=== PATIENT | male | born 1945 | race Caucasian/White ===

== ENCOUNTER 2019-05-13 15:58 | Inpatient (IN) | payer MEDICARE, BC ==
[2019-05-13] MEDS ORDERED: RINGERS SOLUTION,LACTATED 1,000 ML IV ONE ×2 (15:59→16:36)
[2019-05-13] MEDS ORDERED: NORMAL SALINE 1000 ML 1,000 ML IV ONE (15:59)
[2019-05-13] MEDS ORDERED: ACETAMINOPHEN 650 MG SUPP.RECT PR ONE (16:00)
--- NOTE | 2019-05-13 16:04 | ER Document Report ---
ED General - General Stated Complaint: UNRESPONSIVE Time Seen by Provider: 05/13/19 15:59 Notes: Patient is a 73-year-old male that presents to the emergency department for chief complaint of unresponsive. History obtained by EMS as the patient is currently intubated, and unresponsive, apparently the patient was laying on the pavement, for unknown amount of time this morning was, apparently a vessel slag worker showed up and at that time he told him to call 911 and then became unresponsive, when EMS arrived the patient was on the ground, he was covered and fire ants at that time, was noted to be hypoxic, and was minimally responsive, he did have palpable pulses, and did not apparently have an arrest, they did intubate him in the field, with a 7.0 ET tube, and bolused him with IV fluids, he was hypotensive, he got 1 L of fluids, for his intubation he got ketamine, fentanyl, and because his blood pressure dropped after RSI meds, he was given a low dose of epinephrine. He was noted to be febrile with a temperature of 106 F by EMS. No other history is obtainable at this time from EMS. Daughter states that if the patient falls, he has a hard time getting up, and he is supposed to be using a walker, he does have a degree of dementia and has short-term memory, usually has his hearing aids connected to his cell phone, but he did not have his phone on him today. Past Medical History: COPD, dementia, TIAs, hypertension, peripheral vascular disease Past Surgical History: CEA, thyroidectomy Social History: Admits to smoking cigarettes per family, and drinks 6-12 beers in the evening daily, primary care is Dr. Juan Family History: Reviewed and noncontributory for presenting illness Allergies: Reviewed, see documented allergy list. REVIEW OF SYSTEMS: Complete review of systems is not obtainable at this time secondary to the patient being intubated and altered PHYSICAL EXAMINATION: Vital signs reviewed, nursing noted reviewed. GENERAL: Patient appears ill, intubated, unresponsive at this time, agonal breathing in between assisted breaths HEAD: Atraumatic, normocephalic. EYES: Eyes appear normal, extraocular movements intact, sclera anicteric ENT: nares patent, ET tube in place dry mucous membranes NECK: C-collar in place LUNGS: Lung sounds coarse to auscultation bilaterally, equal chest rise with assisted breaths HEART: Heart rate tachycardic, regular rhythm, no audible murmur ABDOMEN: Soft, not apparently tender, normoactive bowel sounds. No rebound, guarding, or rigidity. No masses appreciated. EXTREMITIES: Trace bilateral lower extremity edema, distal pulses are intact and palpable. There are several large bullae noted on the patient's lower extremities bilaterally NEUROLOGICAL: GCS: 3T, patient intubated, not making any purposeful movements at this time. PSYCH: Intubated and sedated SKIN: Cool, mottled, normal turgor, multiple abrasions noted to the lower extremities, superficial in nature, and there is a skin abrasion noted to the patient's chest wall midline Past Medical History - Social History Smoking Status: Current Every Day Smoker Family History: Reviewed & Not Pertinent Physical Exam - Vital signs Vitals: Resp Pulse Ox 17 100 05/13/19 15:59 05/13/19 15:59 Course - Re-evaluation Re-evalutation: Patient seen and examined vital signs reviewed. Laboratory data and imaging were ordered as appropriate for the patient's presenting symptoms and complaint, with consideration of any critical or life threatening conditions that may be associated with their obtained history and exam as noted above. Patient was treated with IV fluid resuscitation, with 3 L of IV fluids, which did improve his blood pressure, and did bring down his heart rate as well, he was given fentanyl for sedation on the ventilator. Results were reviewed when available and demonstrated hyperkalemia, with mild acute kidney injury, patient was given sodium bicarbonate, IV insulin, and glucose, as well as calcium gluconate, in addition to large volume IV fluid resuscitation. The patient was re-evaluated and was improved from a hemodynamic standpoint, not requiring pressors, he was given low-dose propofol for sedation, after his blood pressure had improved. His chest x-ray was negative, urine was negative for signs of urinary tract infection, his symptoms seem most consistent with heat injury, and heatstroke, as he was encephalopathic, CT imaging of the head and c ervical spine were obtained and were negative for acute intracranial injury or acute cervical spine injury, the patient's cervical collar was removed at this point. Evaluation was most consistent with heatstroke, hypertension, hyperkalemia, acute on chronic respiratory failure requiring invasive positive pressure ventilation Results were discussed with the patient daughter at this point after careful consideration I feel that that patient should be admitted to the hospital. This was discussed with the patient daughter that it is in the best interest for their care to be admitted for further evaluation and management. Patient daughter agreed with this plan of care. A call was placed to the admitting provider, Neal Boswell CNP who graciously accepted the patient onto their service. *Note is created using voice recognition software and may contain spelling, syntax or grammatical errors. Laboratory 05/13/19 05/13/19 05/13/19 16:02 16:02 16:02 WBC 7.0 RBC 2.68 L Hgb 9.1 L Hct 26.0 L MCV 97 MCH 33.9 H MCHC 35.0 RDW 12.7 Plt Count 202 Seg Neutrophils % 38.1 L Lymphocytes % 56.7 H Monocytes % 4.0 Eosinophils % 0.5 Basophils % 0.7 Absolute Neutrophils 2.7 Absolute Lymphocytes 4.0 Absolute Monocytes 0.3 Absolute Eosinophils 0.0 Absolute Basophils 0.0 PT 14.5 INR 1.13 APTT 28.8 Carbonic Acid HCO3/H2CO3 Ratio ABG pH ABG pCO2 ABG pO2 ABG HCO3 ABG Total CO2 ABG O2 Saturation ABG Base Excess FiO2 Sodium 122.1 L Potassium 6.9 H* Chloride 93 L Carbon Dioxide 21 L Anion Gap 8 BUN 20 Creatinine 1.31 H Est GFR ( Amer) > 60 Est GFR (Non-Af Amer) 53 L Glucose 108 Lactic Acid Calcium 8.3 L Total Bilirubin 0.4 Direct Bilirubin 0.3 Neonat Total Bilirubin Not Reportable Neonat Direct Bilirubin Not Reportable Neonat Indirect Bili Not Reportable AST 34 ALT 23 Alkaline Phosphatase 72 Creatine Kinase Troponin I Total Protein 5.4 L Albumin 3.1 L Urine Color Urine Appearance Urine pH Ur Specific Scott Urine Protein Urine Glucose (UA) Urine Ketones Urine Blood Urine Nitrite Urine Bilirubin Urine Urobilinogen Ur Leukocyte Esterase Urine WBC (Auto) Urine RBC (Auto) Urine Mucus (Auto) Urine Ascorbic Acid Salicylates Acetaminophen Serum Alcohol 05/13/19 05/13/19 05/13/19 16:02 16:02 16:02 WBC RBC Hgb Hct MCV MCH MCHC RDW Plt Count Seg Neutrophils % Lymphocytes % Monocytes % Eosinophils % Basophils % Absolute Neutrophils Absolute Lymphocytes Absolute Monocytes Absolute Eosinophils Absolute Basophils PT INR APTT Carbonic Acid HCO3/H2CO3 Ratio ABG pH ABG pCO2 ABG pO2 ABG HCO3 ABG Total CO2 ABG O2 Saturation ABG Base Excess FiO2 Sodium Potassium Chloride Carbon Dioxide Anion Gap BUN Creatinine Est GFR ( Amer) Est GFR (Non-Af Amer) Glucose Lactic Acid 2.0 Calcium Total Bilirubin Direct Bilirubin Neonat Total Bilirubin Neonat Direct Bilirubin Neonat Indirect Bili AST ALT Alkaline Phosphatase Creatine Kinase Troponin I 0.050 Total Protein Albumin Urine Color YELLOW Urine Appearance SLIGHTLY-CLOUDY Urine pH 7.0 Ur Specific Scott 1.008 Urine Protein NEGATIVE Urine Glucose (UA) NEGATIVE Urine Ketones NEGATIVE Urine Blood NEGATIVE Urine Nitrite NEGATIVE Urine Bilirubin NEGATIVE Urine Urobilinogen NEGATIVE Ur Leukocyte Esterase NEGATIVE Urine WBC (Auto) 1 Urine RBC (Auto) 1 Urine Mucus (Auto) RARE Urine Ascorbic Acid NEGATIVE Salicylates Acetaminophen Serum Alcohol 05/13/19 05/13/19 05/13/19 16:02 16:02 16:02 WBC RBC Hgb Hct MCV MCH MCHC RDW Plt Count Seg Neutrophils % Lymphocytes % Monocytes % Eosinophils % Basophils % Absolute Neutrophils Absolute Lymphocytes Absolute Monocytes Absolute Eosinophils Absolute Basophils PT INR APTT Carbonic Acid 1.19 HCO3/H2CO3 Ratio 17:1 ABG pH 7.35 ABG pCO2 39.6 ABG pO2 306.5 H ABG HCO3 21.3 ABG Total CO2 22.5 L ABG O2 Saturation 99.7 H ABG Base Excess -4.0 FiO2 100% Sodium Potassium Chloride Carbon Dioxide Anion Gap BUN Creatinine Est GFR ( Amer) Est GFR (Non-Af Amer) Glucose Lactic Acid Calcium Total Bilirubin Direct Bilirubin Neonat Total Bilirubin Neonat Direct Bilirubin Neonat Indirect Bili AST ALT Alkaline Phosphatase Creatine Kinase 268 H Troponin I Total Protein Albumin Urine Color Urine Appearance Urine pH Ur Specific Scott Urine Protein Urine Glucose (UA) Urine Ketones Urine Blood Urine Nitrite Urine Bilirubin Urine Urobilinogen Ur Leukocyte Esterase Urine WBC (Auto) Urine RBC (Auto) Urine Mucus (Auto) Urine Ascorbic Acid Salicylates < 1.0 L Acetaminophen < 10 L Serum Alcohol < 10 05/13/19 17:51 WBC RBC Hgb Hct MCV MCH MCHC RDW Plt Count Seg Neutrophils % Lymphocytes % Monocytes % Eosinophils % Basophils % Absolute Neutrophils Absolute Lymphocytes Absolute Monocytes Absolute Eosinophils Absolute Basophils PT INR APTT Carbonic Acid 1.20 HCO3/H2CO3 Ratio 17:1 ABG pH 7.33 L ABG pCO2 39.8 ABG pO2 226.5 H ABG HCO3 20.6 ABG Total CO2 21.8 L ABG O2 Saturation 99.4 H ABG Base Excess -5.0 FiO2 100% Sodium Potassium Chloride Carbon Dioxide Anion Gap BUN Creatinine Est GFR ( Amer) Est GFR (Non-Af Amer) Glucose Lactic Acid Calcium Total Bilirubin Direct Bilirubin Neonat Total Bilirubin Neonat Direct Bilirubin Neonat Indirect Bili AST ALT Alkaline Phosphatase Creatine Kinase Troponin I Total Protein Albumin Urine Color Urine Appearance Urine pH Ur Specific Scott Urine Protein Urine Glucose (UA) Urine Ketones Urine Blood Urine Nitrite Urine Bilirubin Urine Urobilinogen Ur Leukocyte Esterase Urine WBC (Auto) Urine RBC (Auto) Urine Mucus (Auto) Urine Ascorbic Acid Salicylates Acetaminophen Serum Alcohol Chest X-Ray 05/13/19 16:00 IMPRESSION: NO ACUTE RADIOGRAPHIC FINDING IN THE CHEST. SUPPORT DEVICE(S) IN EXPECTED LOCATIONS. Cervical Spine CT 05/13/19 16:02 IMPRESSION: CHRONIC DEGENERATIVE CHANGES. NO ACUTE FINDINGS. Head CT 05/13/19 16:02 IMPRESSION: CHRONIC CHANGES OF ATROPHY AND MICROVASCULAR ISCHEMIA. NO ACUTE PROCESS. EVIDENCE OF ACUTE STROKE: NO. - Vital Signs Vital signs: Temp Pulse Resp BP Pulse Ox 17 95/46 L 100 05/13/19 20:35 05/13/19 20:35 05/13/19 20:35 - Laboratory Result Diagrams: 05/13/19 16:02 05/13/19 16:02 Laboratory results interpreted by me: 05/13/19 05/13/19 05/13/19 16:02 16:02 16:02 RBC 2.68 L Hgb 9.1 L Hct 26.0 L MCH 33.9 H Seg Neutrophils % 38.1 L Lymphocytes % 56.7 H ABG pH ABG pO2 306.5 H ABG Total CO2 22.5 L ABG O2 Saturation 99.7 H Sodium 122.1 L Potassium 6.9 H* Chloride 93 L Carbon Dioxide 21 L Creatinine 1.31 H Est GFR (Non-Af Amer) 53 L Calcium 8.3 L Creatine Kinase Total Protein 5.4 L Albumin 3.1 L Salicylates Acetaminophen 05/13/19 05/13/19 05/13/19 16:02 16:02 17:51 RBC Hgb Hct MCH Seg Neutrophils % Lymphocytes % ABG pH 7.33 L ABG pO2 226.5 H ABG Total CO2 21.8 L ABG O2 Saturation 99.4 H Sodium Potassium Chloride Carbon Dioxide Creatinine Est GFR (Non-Af Amer) Calcium Creatine Kinase 268 H Total Protein Albumin Salicylates < 1.0 L Acetaminophen < 10 L - EKG Interpretation by Me Additional EKG results interpreted by me: EKG demonstrates sinus tachycardia with a ventricular rate of 137 bpm, left axis deviation, QTC 435 ms, there are ST depressions noted in the leads I, V3 through V6, no prior for comparison at this time. Critical Care Note - Critical Care Note Total time excluding time spent on procedures (mins): 50 Comments: Critical care time 50 minutes exclusive from separate billable procedures for a patient requiring complex medical decision making, and high potential for c linical deterioration. In a patient with acute on chronic respiratory failure on the ventilator, requiring fluid resuscitation, frequent re-evaluations and discussion with family members. Time spent obtaining history from patient or surrogate, discussions with consultants, development of treatment plan with patient or surrogate, evaluation of patient's response to treatment, examination of patient, ordering and performing treatments and interventions, ordering and review of laboratory studies, re-evaluation of patient's condition, ordering and review of radiographic studies and review of old charts Discharge - Discharge Clinical Impression: Hyperkalemia, Hyponatremia Heat stroke Qualifiers: Encounter type: initial encounter Qualified Code(s): T67.0XXA - Heatstroke and sunstroke, initial encounter Acute and chronic respiratory failure Qualifiers: Respiratory failure complication: hypoxia Qualified Code(s): J96.21 - Acute and chronic respiratory failure with hypoxia Hypotension Qualifiers: Hypotension type: unspecified hypotension type Qualified Code(s): I95.9 - Hypotension, unspecified Condition: Stable Disposition: ADMITTED INPATIENT Admitting Provider: Daria (Hospitalist) - Neal Boswell DIRECTOR SPEECH LANGUAGE Unit Admitted: ICU
[2019-05-13] MEDS ORDERED: FENTANYL CITRATE INJ/PF 100 MCG/2 ML AMPUL ONE (16:13)
[2019-05-13] MEDS ORDERED: PIPERACILLIN/TAZOBACTAM 3.375 GM VIAL IV ONE ×2 (16:14→22:33)
[2019-05-13] MEDS ORDERED: FENTANYL CITRATE INJ/PF 100 MCG/2 ML AMPUL IV ONE (16:14)
[2019-05-13] MEDS ORDERED: VANCOMYCIN HCL INJ 1000 MG VIAL IV ONE (16:14)
[2019-05-13 16:23] LABS: ABSOLUTE MONOCYTES (AUTO) 0.3 10^3/uL (0.1-1.4); MEAN CORPUSCULAR HEMOGLOBIN 33.9 pg (27.0-33.4); TOTAL CELLS COUNTED % (AUTO) 100 %
[2019-05-13 16:25] LABS: ARTERIAL BLOOD FIO2 100%; ARTERIAL BLOOD H2CO3 1.19 mmol/L (1.05-1.35); ARTERIAL BLOOD HCO3 21.3 mmol/L (20-24); ARTERIAL BLOOD O2 SATURATION 99.7 % (94-98); ARTERIAL BLOOD PCO2 39.6 mmHg (35-45); ARTERIAL BLOOD PH 7.35 (7.35-7.45); ARTERIAL BLOOD PO2 306.5 mmHg (80-100); ARTERIAL BLOOD TOTAL CO2 22.5 mmol/L (23-27)
[2019-05-13 16:27] LABS: INTERNATIONAL RATION (INR) 1.13; PROTHROMBIN TIME 14.5 SEC (11.4-15.4)
[2019-05-13 16:28] LABS: ABSOLUTE NEUT (AUTO) 2.7 10^3/uL (1.7-8.2); BASOPHILS % (AUTO) 0.7 % (0-2); EOSINOPHILS % (AUTO) 0.5 % (0-6); HEMOGLOBIN 9.1 g/dL (13.5-17.0); LYMPHOCYTES % (AUTO) 56.7 % (13-45); MEAN CORPUSCULAR VOLUME 97 fl (80-97); PARTIAL THROMBOPLASTIN TIME 28.8 SEC (23.5-35.8); PLATELET COUNT 202 10^3/uL (150-450); RED BLOOD COUNT 2.68 10^6/uL (4.35-5.55); RED CELL DISTRIBUTION WIDTH 12.7 % (11.5-14.0); SEGMENTED NEUTROPHILS % (AUTO) 38.1 % (42-78)
--- NOTE | 2019-05-13 16:31 | RADIOLOGY REPORT (SQ) ---
EXAM DESCRIPTION: CHEST SINGLE VIEW COMPLETED DATE/TIME: 05/13/2019 4:16 pm REASON FOR STUDY: fever, respiratory failure COMPARISON: None. EXAM PARAMETERS: NUMBER OF VIEWS: One view TECHNIQUE: Single frontal radiograph of the chest. RADIATION DOSE: N/A LIMITATIONS: None. FINDINGS: TEMPORARY SUPPORT DEVICES:ETT in expected location. NG tube courses below the aldo-diaphr agm in to the stomach. LUNGS AND PLEURA: No opacities. No masses. No effusions. No pneumothorax. MEDIASTINUM AND HILAR STRUCTURES: No masses. Contour normal. HEART AND VASCULAR STRUCTURES: Heart size normal. Normal vascularity. Aorta normal for age BONES: No acute findings. OTHER: No other significant finding. IMPRESSION: NO ACUTE RADIOGRAPHIC FINDING IN THE CHEST. SUPPORT DEVICE(S) IN EXPECTED LOCATIONS. TECHNICAL DOCUMENTATION: JOB ID: [id number] [employer]- All Rights Reserved Reading location - IP/workstation name: [email or web address]
[2019-05-13 16:33] LABS: APPEARANCE,URINE SLIGHTLY-CLOUDY; BILIRUBIN,URINE NEGATIVE (NEGATIVE); COLOR,URINE YELLOW; GLUCOSE, URINE NEGATIVE (NEGATIVE); KETONES,URINE NEGATIVE (NEGATIVE); LEUKOCYTE ESTERASE,URINE NEGATIVE (NEGATIVE); NITRITE,URINE NEGATIVE (NEGATIVE); PROTEIN,URINE NEGATIVE (NEGATIVE); URINE SPECIFIC GRAVITY 1.008; UROBILINOGEN,URINE NEGATIVE mg/dL (<2.0)
[2019-05-13 16:38] LABS: ALANINE AMINOTRANSFERASE 23 U/L (21-72); ALBUMIN 3.1 g/dL (3.5-5.0); ALKALINE PHOSPHATASE 72 U/L (38-126); ANION GAP 8 (5-19); ASPARTATE AMINO TRANSFERASE 34 U/L (17-59); BILIRUBIN,DIRECT 0.3 mg/dL (0.0-0.4); BILIRUBIN,TOTAL 0.4 mg/dL (0.2-1.3); BLOOD UREA NITROGEN 20 mg/dL (7-20); CALCIUM 8.3 mg/dL (8.4-10.2); CARBON DIOXIDE 21 mmol/L (22-30); CHLORIDE 93 mmol/L (98-107); GLUCOSE 108 mg/dL (75-110); TOTAL PROTEIN 5.4 g/dL (6.3-8.2)
[2019-05-13 16:45] LABS: POTASSIUM 6.9 mmol/L (3.6-5.0)
[2019-05-13] MEDS ORDERED: SODIUM BICARBONATE 8.4% INJ 50 MEQ/50 ML DISP.SYRIN IV ONE (16:50)
--- NOTE | 2019-05-13 17:04 | RADIOLOGY REPORT (SQ) ---
EXAM DESCRIPTION: CT HEAD WITHOUT COMPLETED DATE/TIME: 05/13/2019 4:56 pm REASON FOR STUDY: fall, head injury, ams COMPARISON: None. TECHNIQUE: Axial images acquired through the brain without intravenous contrast. Images reviewed wi th bone, brain and subdural windows. Additional sagittal and coronal reconstructions were generated. Images stored on PACS. All CT scanners at this facility use dose modulation, iterative reconstruction, and/or weight based d osing when appropriate to reduce radiation dose to as low as reasonably achievable (ALARA). [facility]: Dose Right [facility]: CareDose [facility]: Dose Right [facility]: Teradose 4D [facility]: Smart [employer] RADIATION DOSE: CT Rad equipment meets quality standard of care and radiation dose reduction techniq ues were employed. CTDIvol: 53.2 mGy. DLP: 1017 mGy-cm.mGy. LIMITATIONS: None. FINDINGS: VENTRICLES: Prominent. CEREBRUM: No masses. No hemorrhage. No midline shift. Areas of low density in the white matter mos t likely due to chronic micro-vascular ischemic change. No evidence for acute infarction. CEREBELLUM: No masses. No hemorrhage. No alteration of density. No evidence for acute infarction. EXTRAAXIAL SPACES: Age-related involutional change. No fluid collections. No masses. ORBITS AND GLOBE: No intra- or extraconal masses. Normal contour of globe without masses. CALVARIUM: No fracture. PARANASAL SINUSES: Extensive maxillary and ethmoid sinus disease. SOFT TISSUES: No mass or hematoma. OTHER: Intubation. IMPRESSION: CHRONIC CHANGES OF ATROPHY AND MICROVASCULAR ISCHEMIA. NO ACUTE PROCESS. EVIDENCE OF ACUTE STROKE: NO. TECHNICAL DOCUMENTATION: JOB ID: [id number] Quality ID # [id number]: Final reports with documentation of one or more dose reduction techniques (e.g., Au tomated exposure control, adjustment of the mA and/or kV according to patient size, use of iterative reconstruction technique) 2010 [employer]- All Rights Reserved Reading location - IP/workstation name: [email or web address]
--- NOTE | 2019-05-13 17:06 | RADIOLOGY REPORT (SQ) ---
EXAM DESCRIPTION: CT CERVICAL SPINE WITHOUT COMPLETED DATE/TIME: 05/13/2019 4:56 pm REASON FOR STUDY: fall, head injury COMPARISON: None. TECHNIQUE: Axial images acquired through the cervical spine without intravenous contrast. Images re viewed with lung, soft tissue and bone windows. Reconstructed coronal and sagittal MPR images review ed. Images stored on PACS. All CT scanners at this facility use dose modulation, iterative reconstruction, and/or weight based d osing when appropriate to reduce radiation dose to as low as reasonably achievable (ALARA). [facility]: Dose Right [facility]: CareDose [facility]: Dose Right [facility]: Teradose 4D [facility]: [employer] RADIATION DOSE: CT Rad equipment meets quality standard of care and radiation dose reduction techniq ues were employed. CTDIvol: 18.3 mGy. DLP: 411 mGy-cm. mGy. LIMITATIONS: None. FINDINGS: ALIGNMENT: Anatomic. MINERALIZATION: Normal. VERTEBRAL BODIES: No fractures or dislocation. DISCS: Multilevel disc space narrowing with osteophytes. FACETS, LATERAL MASSES, POSTERIOR ELEMENTS: Facet arthropathy. No fractures. No dislocation. No ac [place] findings. HARDWARE: None in the spine. VISUALIZED RIBS: No fractures. LUNG APICES AND SOFT TISSUES: No significant or acute findings. OTHER: Intubation. NG tube. IMPRESSION: CHRONIC DEGENERATIVE CHANGES. NO ACUTE FINDINGS. TECHNICAL DOCUMENTATION: JOB ID: [id number] Quality ID # [id number]: Final reports with documentation of one or more dose reduction techniques (e.g., Au tomated exposure control, adjustment of the mA and/or kV according to patient size, use of iterative reconstruction technique) 2010 [employer]- All Rights Reserved Reading location - IP/workstation name: [email or web address]
[2019-05-13] MEDS ORDERED: INSULIN REG, HUMAN 100 UNIT/ML 3 ML VIAL (PYX) IV ONE (17:07)
[2019-05-13] MEDS ORDERED: CALCIUM GLUCONATE 1000 MG/10 ML INJ IV ONE (17:08)
[2019-05-13] MEDS ORDERED: DEXTROSE 50%-WATER 25 GM/50 ML DISP.SYRIN IV ONE ×3 (17:08→23:25)
[2019-05-13] MEDS ORDERED: PROPOFOL 1,000 MG/100 ML INFUS..BTL IV PRN (17:23)
[2019-05-13] MEDS ORDERED: PROPOFOL 1,000 MG/100 ML INFUS..BTL IV ONE (17:27)
[2019-05-13] MEDS: PROPOFOL 1,000 MG/100 ML INFUS..BTL IV PRN (17:31)
[2019-05-13] MEDS ORDERED: MIDAZOLAM HCL 50 MG/100 ML RTUINJ ONE (17:41)
[2019-05-13] MEDS ORDERED: MIDAZOLAM 2 MG/2 ML INJ ONE (17:41)
[2019-05-13] MEDS ORDERED: MIDAZOLAM HCL 50 MG/100 ML RTUINJ IV PRN (17:45)
[2019-05-13] MEDS ORDERED: MIDAZOLAM 2 MG/2 ML INJ IV ONE ×2 (17:45→19:00)
[2019-05-13] MEDS ORDERED: NORMAL SALINE 1000 ML 1,000 ML IV PRN ×2 (17:46→19:00)
[2019-05-13] MEDS ORDERED: ONDANSETRON HCL INJ/PF 4 MG/2 ML SDV IV PRN (17:46)
[2019-05-13] MEDS ORDERED: ACETAMINOPHEN 650 MG SUPP.RECT PR PRN (17:46)
[2019-05-13] MEDS: MIDAZOLAM HCL 50 MG/100 ML RTUINJ IV PRN (17:50)
[2019-05-13] MEDS ORDERED: HYDROMORPHONE HCL INJ/PF 2 MG/ML AMPULE IV PRN (17:56)
--- NOTE | 2019-05-13 17:57 | Progress Note Acknowledgement ---
Progress Note Acknowledgement Progess Note Acknowledgement: I, the undersigned member of the medical staff with appropriate privileges and with supervisory authority over [Neal Boswell], a dependent practice allied health professional, acknowledge that I have reviewed the progress notes entered on this patient, and in my professional judgment believe that the assessment made and/or any care evidenced was appropriate
[2019-05-13] MEDS ORDERED: VANCOMYCIN HCL 0 MG in DEXTROSE 5%-WATER 250 ML IV NR (18:00)
[2019-05-13] MEDS ORDERED: NORMAL SALINE 1000 ML 1,000 ML with POTASSIUM CHLORIDE 20 MEQ, MAGNESIUM SULFATE 8 MEQ,... IV SCH ×5 (18:00)
[2019-05-13] MEDS ORDERED: SODIUM POLYSTYRENE SULFONATE 15 GM/60 ML NG ONE (18:00)
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
[2019-05-13 18:13] LABS: ARTERIAL BLOOD HCO3 20.6 mmol/L (20-24); ARTERIAL BLOOD O2 SATURATION 99.4 % (94-98); ARTERIAL BLOOD PCO2 39.8 mmHg (35-45); ARTERIAL BLOOD PH 7.33 (7.35-7.45); ARTERIAL BLOOD PO2 226.5 mmHg (80-100); ARTERIAL BLOOD TOTAL CO2 21.8 mmol/L (23-27)
[2019-05-13 18:15] LABS: ARTERIAL BLOOD FIO2 100%
[2019-05-13] MEDS ORDERED: NOREPINEPHRINE BITARTRATE INJ/PF 4 MG/4 ML SDV IV ONE (18:56)
[2019-05-13] MEDS: DEXTROSE 5%-WATER 250 ML with NOREPINEPHRINE BITARTRATE 4 MG IV PRN ×2 (19:05)
[2019-05-13] MEDS ORDERED: PIPERACILLIN/TAZOBACTAM 3.375 GM VIAL IV PRN (19:29)
[2019-05-13 20:41] LABS: ACETAMINOPHEN < 10 ug/mL (10-30); ALCOHOL < 10 mg/dL (NONE DETECTED); SALICYLATE < 1.0 mg/dL (2.0-20.0)
[2019-05-13 21:23] LABS: URINE AMPHETAMINES SCREEN NEGATIVE; URINE BARBITURATES SCREEN NEGATIVE; URINE BENZODIAZEPINES SCREEN NEGATIVE; URINE COCAINE SCREEN NEGATIVE; URINE MARIJUANA (THC) SCREEN NEGATIVE; URINE METHADONE SCREEN NEGATIVE; URINE PHENCYCLIDINE SCREEN NEGATIVE
[2019-05-13] MEDS: HEPARIN SOD (PORCINE) 5,000 UNIT/ML 1 ML VIAL SUBCUT SCH (22:31)
[2019-05-13] MEDS: PIPERACILLIN SODIUM/TAZOBACTAM 3.375 GM in NORMAL SALINE 100 ML IV SCH (22:55)
--- NOTE | 2019-05-13 23:11 | EKG REPORT ---
SEVERITY:- ABNORMAL ECG - SINUS TACHYCARDIA RBBB AND LAFB : Confirmed by: Blanka Mckee 13-May-2019 23:10:47
[2019-05-13 23:12] LABS: ANION GAP 7 (5-19); BLOOD UREA NITROGEN 23 mg/dL (7-20); CARBON DIOXIDE 21 mmol/L (22-30); CHLORIDE 98 mmol/L (98-107)
[2019-05-13 23:22] LABS: POTASSIUM 4.7 mmol/L (3.6-5.0)
[2019-05-13 23:23] LABS: GLUCOSE 39 mg/dL (75-110)
[2019-05-13] MEDS ORDERED: DEXTROSE 50%-WATER 25 GM/50 ML DISP.SYRIN IV PRN ×2 (23:55)
[2019-05-13] MEDS ORDERED: GLUCAGON,HUMAN RECOMB 1 MG INJ SUBCUT PRN (23:55)
[2019-05-13] MEDS ORDERED: DEXTROSE 40% GEL 15 GM TUBE PO PRN ×2 (23:55)
[2019-05-14] MEDS: DEXTROSE 5%-LACTATED RINGERS 1,000 ML IV PRN ×2 (00:41→04:25)
[2019-05-14] MEDS ORDERED: PIPERACILLIN/TAZOBACTAM 3.375 GM VIAL IV ONE (02:49)
[2019-05-14] MEDS: PIPERACILLIN SODIUM/TAZOBACTAM 3.375 GM in NORMAL SALINE 100 ML IV SCH ×4 (03:05→21:24)
[2019-05-14] MEDS: PROPOFOL 1,000 MG/100 ML INFUS..BTL IV PRN ×3 (03:13→19:14)
[2019-05-14 04:10] LABS: ARTERIAL BLOOD BASE EXCESS -5.8 mmol/L; ARTERIAL BLOOD H2CO3 1.01 mmol/L (1.05-1.35); ARTERIAL BLOOD HCO3 18.6 mmol/L (20-24); ARTERIAL BLOOD O2 SATURATION 96.6 % (94-98); ARTERIAL BLOOD PCO2 33.4 mmHg (35-45); ARTERIAL BLOOD PH 7.36 (7.35-7.45); ARTERIAL BLOOD PO2 88.6 mmHg (80-100); ARTERIAL BLOOD TOTAL CO2 19.6 mmol/L (23-27)
[2019-05-14 04:13] LABS: ARTERIAL BLOOD FIO2 28 FLOW RATE
[2019-05-14 04:16] LABS: ALANINE AMINOTRANSFERASE 45 U/L (21-72); ALBUMIN 2.6 g/dL (3.5-5.0); ALKALINE PHOSPHATASE 83 U/L (38-126); ANION GAP 6 (5-19); ASPARTATE AMINO TRANSFERASE 154 U/L (17-59); BILIRUBIN,DIRECT 0.4 mg/dL (0.0-0.4); BILIRUBIN,TOTAL 0.6 mg/dL (0.2-1.3); BLOOD UREA NITROGEN 25 mg/dL (7-20); CALCIUM 7.6 mg/dL (8.4-10.2); CARBON DIOXIDE 22 mmol/L (22-30); CHLORIDE 97 mmol/L (98-107); GLUCOSE 207 mg/dL (75-110); PHOSPHORUS 2.2 mg/dL (2.5-4.5); POTASSIUM 4.8 mmol/L (3.6-5.0)
[2019-05-14 04:39] LABS: CREATINE KINASE 4919 U/L (55-170)
[2019-05-14] MEDS: HEPARIN SOD (PORCINE) 5,000 UNIT/ML 1 ML VIAL SUBCUT SCH ×3 (05:28→21:23)
[2019-05-14 05:50] LABS: HEMATOCRIT 39.1 % (37.9-51.0); MEAN CORPUSCULAR HEMOGLOBIN 33.6 pg (27.0-33.4); MEAN CORPUSCULAR HGB CONC 34.5 g/dL (32.0-36.0); MEAN CORPUSCULAR VOLUME 97 fl (80-97); PLATELET COUNT 152 10^3/uL (150-450); RED BLOOD COUNT 4.02 10^6/uL (4.35-5.55)
[2019-05-14 05:54] LABS: HEMOGLOBIN 13.5 g/dL (13.5-17.0)
[2019-05-14 06:04] LABS: ABSOLUTE LYMPHOCYTES# (MANUAL) 0.5 10^3/uL (0.5-4.7); BAND NEUTROPHILS % (MANUAL) 3 % (3-5); BASOPHILS % (MANUAL) 0 % (0-2); EOSINOPHILS % (MANUAL) 1 % (0-6); LYMPHOCYTES % (MANUAL) 4 % (13-45); MONOCYTES % (MANUAL) 8 % (3-13); PLATELET COMMENT ADEQUATE; SEGMENTED NEUTROPHILS % (MAN) 84 % (42-78); TOTAL CELLS COUNTED 100; TOXIC VACUOLATION PRESENT
[2019-05-14 06:05] LABS: RBC MORPHOLOGY COMMENT NORMO-CYTIC/CHROMIC
[2019-05-14] MEDS ORDERED: SODIUM PHOS,M-BASIC-D-BASIC 15 MMOL in NORMAL SALINE 250 ML IV ONE ×2 (06:27→10:00)
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
[2019-05-14] MEDS ORDERED: NORMAL SALINE 1000 ML 1,000 ML with MAGNESIUM SULFATE 8 MEQ, THIAMINE HCL 100 MG, MVI, ... IV SCH ×8 (08:00→12:00)
[2019-05-14] MEDS: PANTOPRAZOLE SODIUM 40 MG VIAL IV SCH (09:41)
[2019-05-14] MEDS: ASPIRIN 300 MG SUPP, RECTAL PR SCH (09:41)
[2019-05-14] MEDS: VANCOMYCIN HCL 500 MG in DEXTROSE 5%-WATER 100 ML IV SCH ×2 (12:15→22:00)
[2019-05-14 13:05] LABS: URINE CREATININE 115.7 mg/dL (22-328)
--- NOTE | 2019-05-14 13:35 | OPERATIVE REPORT E ---
Operative Report NAME: BRENDA MA JR : 1945 AGE: 73Y DATE OF SURGERY: 05/14/2019 ROOM: 601 PREOPERATIVE DIAGNOSIS: POOR VEINS FOR IV ACCESS. POSTOPERATIVE DIAGNOSIS: POOR VEINS FOR IV ACCESS. OPERATION: Placement of right internal jugular vein triple lumen catheter under local anesthesia and ultrasound guidance. SURGEON: PRICILA KIRK M.D. PROCEDURE: The patient was placed in Trendelenburg position and the right neck prepped and draped in the usual sterile fashion. Patient is intubated. With use of the ultrasound, the right internal jugular vein was then identified and local anesthesia infiltrated over the skin. The right internal jugular vein was subsequently punctured and guidewire passed through the needle to a distance of about 17 cm. All of the 3 ports aspirated blood easily and instilled saline easily. The catheter was then anchored to the skin with 3-0 Silk and a Biopatch placed over the insertion site. A transparent dressing was then placed over the Biopatch and catheter. Chest x-ray will be obtained for placement. Patient tolerated procedure well. DICTATING PHYSICIAN: PRICILA KIRK M.D. [id number] PHY#: [id number] ID: [id number] JOB#: [id number] ACCT: [id number] cc:PRICILA KIRK M.D. >
--- NOTE | 2019-05-14 14:01 | RADIOLOGY REPORT (SQ) ---
EXAM DESCRIPTION: CHEST SINGLE VIEW COMPLETED DATE/TIME: 05/14/2019 1:44 pm REASON FOR STUDY: CENTRAL LINE PLACEMENT COMPARISON: None. EXAM PARAMETERS: NUMBER OF VIEWS: One view. TECHNIQUE: Single frontal radiographic view of the chest acquired. RADIATION DOSE: NA LIMITATIONS: None. FINDINGS: LUNGS AND PLEURA: No opacities, masses or pneumothorax. No pleural effusion. MEDIASTINUM AND HILAR STRUCTURES: No masses. Contour normal. HEART AND VASCULAR STRUCTURES: The heart pulmonary vasculature are normal. Aortic atherosclerosis is noted. Pulmonary vasculature is normal. . BONES: No acute findings. HARDWARE: Surgical clips over superior mediastinum. OTHER: Right central venous line with tip overlying SVC. NG to seen passing toward left upper quadra nt region of stomach. Nipple shadow overlying right anterior 6th rib IMPRESSION: No acute disease. TECHNICAL DOCUMENTATION: JOB ID: [id number] 2010 [employer]- All Rights Reserved Reading location - IP/workstation name: [email or web address]
[2019-05-14] MEDS ORDERED: DOBUTAMINE HCL/D5W 500 MG/250 ML RTUINJ IV PRN (14:06)
[2019-05-14] MEDS ORDERED: DOBUTAMINE HCL/D5W 500 MG/250 ML RTUINJ IV ONE (14:08)
[2019-05-14] MEDS ORDERED: NORMAL SALINE 1000 ML 1,000 ML IV PRN (14:27)
[2019-05-14] MEDS ORDERED: PHENYLEPHRINE HCL INJ/PF 10 MG/1 ML SDV ONE (14:36)
[2019-05-14] MEDS: DEXTROSE 5%-WATER 250 ML with PHENYLEPHRINE HCL 40 MG IV PRN ×2 (14:40)
[2019-05-14 14:46] LABS: ARTERIAL BLOOD BASE EXCESS -5.8 mmol/L; ARTERIAL BLOOD FIO2 21%; ARTERIAL BLOOD H2CO3 0.96 mmol/L (1.05-1.35); ARTERIAL BLOOD HCO3 18.3 mmol/L (20-24); ARTERIAL BLOOD O2 SATURATION 95.6 % (94-98); ARTERIAL BLOOD PCO2 31.9 mmHg (35-45); ARTERIAL BLOOD PH 7.38 (7.35-7.45); ARTERIAL BLOOD PO2 79.2 mmHg (80-100); ARTERIAL BLOOD TOTAL CO2 19.3 mmol/L (23-27)
--- NOTE | 2019-05-14 15:22 | Progress Note ---
Provider Note Provider Note: Call to patient bedside as patient is having low blood pressure this time. Upon arrival patient blood pressure in the 70s while sitting up in 30 degree position. Patient was on Levophed at that time at 12 mics per minute. I added dobutamine at that time to help increase cardiac as patient is having low urine output as well. Dobutamine adversely increased heart rate to 120s to 130s rate. I decreased the dobutamine at that time to 2.5 mics just for cardiac kick and added Jorge-Synephrine. I gave patient 2 L normal saline bolus. I obtained a fractional secretion sodium that showed a 0.2% level, this indicates patient is prerenal in nature and is dry. Patient also showed orthostasis as he would have a good blood pressure and heart rate while laying in Trendelenburg was we set him up he would drop down in the 70 systolic and his blood pressure and his heart rate would jump into the 120s 130s. Once I gave patient IV fluids his heart rate started to come down to a normal range and he seemed more comfortable with this. At this time patient had up a ABG that shows a metabolic acidosis with respiratory alkalosis fully compensated. Patient had a lactic acid this time 1.2. Patient also had a drop in his CK from 4900 to 1500 showing an improvement in his rhabdomyolysis. Patient does have NG tube in place we will do trickle feeding with Jevity 1.5 at 20 mL's per hour. We will continue other supportive measures. Patient remains on ventilator SIMV of 14, tidal volume 500, and 25% FiO2. Patient remains on Versed drip at 8 mg an hour as he does have a large drinking history and propofol at 10 mcg/kg/min. Patient does have multiple terminal terry throughout the upper thorax and abdomen as well as lower extremities which is causing a lot of third spacing at this time. We will continue aggressive IV hydration. If patient's urine output has not picked up by Wednesday I will have nephrology see patient in consultation. I spent a total of 1 hour in patient's room continue to monitor heart rate, blood pressure, regular rate, O2 sats and temp while stabilizing patient. Critical care time 1 hour
[2019-05-14] MEDS: NORMAL SALINE 1000 ML 1,000 ML IV PRN ×2 (16:40→22:36)
[2019-05-14] MEDS: DEXTROSE 5%-WATER 250 ML with NOREPINEPHRINE BITARTRATE 4 MG IV PRN ×2 (21:22)
[2019-05-14] MEDS: MIDAZOLAM HCL 50 MG/100 ML RTUINJ IV PRN (21:22)
[2019-05-15] MEDS: PROPOFOL 1,000 MG/100 ML INFUS..BTL IV PRN ×3 (00:01→14:35)
[2019-05-15 03:20] LABS: ARTERIAL BLOOD BASE EXCESS -6.7 mmol/L; ARTERIAL BLOOD H2CO3 1.09 mmol/L (1.05-1.35); ARTERIAL BLOOD HCO3 18.6 mmol/L (20-24); ARTERIAL BLOOD O2 SATURATION 92.7 % (94-98); ARTERIAL BLOOD PCO2 36.3 mmHg (35-45); ARTERIAL BLOOD PH 7.33 (7.35-7.45); ARTERIAL BLOOD PO2 68.8 mmHg (80-100); ARTERIAL BLOOD TOTAL CO2 19.7 mmol/L (23-27)
[2019-05-15 03:22] LABS: ABSOLUTE LYMPHOCYTES (AUTO) 1.9 10^3/uL (0.5-4.7); ABSOLUTE NEUT (AUTO) 9.7 10^3/uL (1.7-8.2); BASOPHILS % (AUTO) 0.2 % (0-2); HEMATOCRIT 34.1 % (37.9-51.0); HEMOGLOBIN 11.5 g/dL (13.5-17.0); MEAN CORPUSCULAR HEMOGLOBIN 33.5 pg (27.0-33.4); MEAN CORPUSCULAR HGB CONC 33.9 g/dL (32.0-36.0); MEAN CORPUSCULAR VOLUME 99 fl (80-97); MONOCYTES % (AUTO) 7.7 % (3-13); PLATELET COUNT 132 10^3/uL (150-450); RED BLOOD COUNT 3.45 10^6/uL (4.35-5.55); RED CELL DISTRIBUTION WIDTH 13.1 % (11.5-14.0); SEGMENTED NEUTROPHILS % (AUTO) 77.1 % (42-78); TOTAL CELLS COUNTED % (AUTO) 100 %; WHITE BLOOD COUNT 12.5 10^3/uL (4.0-10.5)
[2019-05-15 03:24] LABS: ARTERIAL BLOOD FIO2 25%
[2019-05-15] MEDS: PIPERACILLIN SODIUM/TAZOBACTAM 3.375 GM in NORMAL SALINE 100 ML IV SCH ×2 (03:35→12:17)
[2019-05-15 03:52] LABS: ALANINE AMINOTRANSFERASE 317 U/L (21-72); ALBUMIN 1.7 g/dL (3.5-5.0); ALKALINE PHOSPHATASE 49 U/L (38-126); ASPARTATE AMINO TRANSFERASE 279 U/L (17-59); BILIRUBIN,DIRECT 0.4 mg/dL (0.0-0.4); BILIRUBIN,TOTAL 0.4 mg/dL (0.2-1.3); BLOOD UREA NITROGEN 21 mg/dL (7-20); GLUCOSE 121 mg/dL (75-110); PHOSPHORUS 3.8 mg/dL (2.5-4.5); POTASSIUM 4.1 mmol/L (3.6-5.0); TOTAL PROTEIN 3.6 g/dL (6.3-8.2)
[2019-05-15 03:59] LABS: CARBON DIOXIDE 19 mmol/L (22-30); CHLORIDE 105 mmol/L (98-107)
[2019-05-15 04:04] LABS: ANION GAP 4 (5-19)
[2019-05-15 04:05] LABS: CALCIUM 6.6 mg/dL (8.4-10.2)
[2019-05-15] MEDS: NORMAL SALINE 1000 ML 1,000 ML IV PRN (04:20)
[2019-05-15] MEDS: HEPARIN SOD (PORCINE) 5,000 UNIT/ML 1 ML VIAL SUBCUT SCH (05:09)
[2019-05-15] MEDS: DEXTROSE 5%-WATER 250 ML with PHENYLEPHRINE HCL 40 MG IV PRN ×2 (05:12)
[2019-05-15] MEDS ORDERED: CALCIUM GLUCONATE 2,000 MG in DEXTROSE 5%-WATER 100 ML IV ONE (06:31)
[2019-05-15] MEDS ORDERED: CALCIUM GLUCONATE 1000 MG/10 ML INJ IV ONE ×2 (06:39→06:48)
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
[2019-05-15] MEDS ORDERED: ONDANSETRON HCL INJ/PF 4 MG/2 ML SDV IV PRN (08:30)
--- NOTE | 2019-05-15 09:47 | RADIOLOGY REPORT (SQ) ---
EXAM DESCRIPTION: CHEST SINGLE VIEW COMPLETED DATE/TIME: 05/15/2019 6:23 am REASON FOR STUDY: resp failure COMPARISON: None. EXAM PARAMETERS: NUMBER OF VIEWS: One view TECHNIQUE: Single frontal radiograph of the chest. RADIATION DOSE: N/A LIMITATIONS: None. FINDINGS: TEMPORARY SUPPORT DEVICES:ETT in expected location. NG tube courses below the aldo-diaphr agm in to the stomach. Central venous access catheter tip is in expected location. LUNGS AND PLEURA: No opacities. No masses. No effusions. No pneumothorax. MEDIASTINUM AND HILAR STRUCTURES: No masses. Contour normal. HEART AND VASCULAR STRUCTURES: Heart size normal. Normal vascularity. Aorta normal for age BONES: No acute findings. OTHER: No other significant finding. IMPRESSION: NO ACUTE RADIOGRAPHIC FINDING IN THE CHEST. SUPPORT DEVICE(S) IN EXPECTED LOCATIONS. TECHNICAL DOCUMENTATION: JOB ID: [id number] [employer]- All Rights Reserved Reading location - IP/workstation name: [email or web address]
[2019-05-15] MEDS ORDERED: ALBUMIN HUMAN 12.5 GM/50 ML RTUINJ IV SCH (10:00)
[2019-05-15] MEDS ORDERED: FENTANYL CITRATE INJ/PF 100 MCG/2 ML AMPUL ONE (10:54)
[2019-05-15] MEDS ORDERED: FENTANYL CITRATE INJ/PF 100 MCG/2 ML AMPUL IV PRN (11:28)
[2019-05-15] MEDS ORDERED: SILVER SULFADIAZINE 1% CREAM 400 GM TP SCH (11:30)
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
[2019-05-15] MEDS: PANTOPRAZOLE SODIUM 40 MG VIAL IV SCH (12:17)
[2019-05-15] MEDS: ASPIRIN 300 MG SUPP, RECTAL PR SCH (12:17)
[2019-05-15] MEDS: VANCOMYCIN HCL 500 MG in DEXTROSE 5%-WATER 100 ML IV SCH (12:29)
[2019-05-15 12:36] LABS: HEPATITS B SURFACE ANTIGEN Negative (Negative)
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
[2019-05-15 13:49] LABS: HEPATITIS C VIRUS ANTIBODY <0.1 s/co ratio (0.0-0.9)
[2019-05-15 14:30] VITALS: BP 113/49
--- NOTE | 2019-05-18 10:55 | PDOC CONSULTATION ---
Consultation Consult Date: 05/14/19 Attending physician:: TONEY LESLIE Provider Consulted: NIKHIL BOJORQUEZ Consult reason:: sepsis History of Present Illness Admission Date/PCP: 05/13/19 17:59 IHSAN MONTERROSO MD History of Present Illness: BRENDA MA JR is a 73 year old male found face down on the ground by his home was intubated in the field by provider network manager his downtime is unknown no family members at bedside does appear that he was has been using tobacco for long time. He is currently in the ICU intubated sedated and on vasopressors for shock Past Medical History Cardiac Medical History: Reports: Hypertension Pulmonary Medical History: Reports: Chronic Obstructive Pulmonary Disease (COPD) Renal/ Medical History: Denies: End Stage Renal Disease Past Surgical History Past Surgical History: Reports: Orthopedic Surgery - back Social History Information Source: [facility] Records Smoking Status: Current Every Day Smoker Cigarettes Packs Per Day: 2 Frequency of Alcohol Use: Heavy Hx Recreational Drug Use: No - Advance Directive Resuscitation Status: Full Code Family History Parental Family History Reviewed: No Children Family History Reviewed: No Sibling(s) Family History Reviewed.: No Medication/Allergy Home Medications: Aspirin/Dipyridamole [Aspirin-Dipyridam ER 25-200 mg] 1 cap PO Q12 05/14/19 Bumetanide [Bumex 1 mg Tablet] 1 mg PO DAILY 05/14/19 Clonazepam [Klonopin 1 mg Tablet] 1 mg PO Q8HP PRN 05/14/19 Enalapril Maleate [Vasotec 2.5 mg Tablet] 2.5 mg PO Q12 05/14/19 Esomeprazole Magnesium 40 mg PO DAILY 05/14/19 Labetalol HCl [Normodyne 200 mg Tablet] 100 mg PO Q12 05/14/19 Potassium Chloride [K-Tab ER] 20 meq PO DAILY 05/14/19 Trazodone HCl [Desyrel 50 mg Tablet] 50 mg PO HSP PRN 05/14/19 Venlafaxine HCl ER [Effexor Xr 37.5 mg Cap.sr] 37.5 mg PO DAILY 05/14/19 Allergies/Adverse Reactions: hydroxyzine [From Vistaril] Allergy (Severe, Verified 05/13/19 23:18) Anaphylaxis meperidine [From Demerol] Allergy (Verified 05/13/19 21:44) Review of Systems ROS unobtainable: Due to endotracheal tube, Due to mental status Physical Exam Vital Signs: Temp Pulse Resp BP Pulse Ox 97.7 F 84 14 93/49 L 100 05/14/19 10:00 05/14/19 10:00 05/14/19 10:00 05/14/19 10:00 05/14/19 11:12 Intake & Output 05/13/19 05/14/19 05/15/19 06:59 06:59 06:59 Intake Total 3866 Output Total 1620 140 Balance 2246 -140 Weight 76.2 kg General appearance: PRESENT: no acute distress, disheveled, well-developed, well-nourished. ABSENT: cooperative Head exam: PRESENT: normocephalic Eye exam: PRESENT: conjunctiva pale. ABSENT: EOMI, nystagmus, periorbital swel ling Mouth exam: PRESENT: dry mucosa, neck supple, tongue midline, other - ET tube Neck exam: ABSENT: carotid bruit, full ROM, JVD, lymphadenopathy, meningismus, tenderness, thyromegaly, tracheal deviation, tracheostomy, other Respiratory exam: PRESENT: decreased breath sounds, prolonged expiratory phas, rales, rhonchi, symmetrical, unlabored. ABSENT: retraction, stridor, tachypnea Cardiovascular exam: PRESENT: RRR, +S1, +S2, tachycardia Pulses: PRESENT: normal radial pulses GI/Abdominal exam: PRESENT: soft Gentrourinary exam: PRESENT: indwelling catheter Extremities exam: ABSENT: calf tenderness, clubbing, joint swelling, pedal edema Musculoskeletal exam: ABSENT: ambulatory, deformity, dislocation Neurological exam: ABSENT: awake Skin exam: PRESENT: dry, pallor, other - Bullous on lower extremity Results Laboratory Results: 05/14/19 05:23 05/14/19 03:26 05/13/19 05/13/19 05/13/19 16:02 16:02 16:02 WBC 7.0 RBC 2.68 L Hgb 9.1 L Hct 26.0 L MCV 97 MCH 33.9 H MCHC 35.0 RDW 12.7 Plt Count 202 Seg Neutrophils % 38.1 L Lymphocytes % 56.7 H Monocytes % 4.0 Eosinophils % 0.5 Basophils % 0.7 Absolute Neutrophils 2.7 Absolute Lymphocytes 4.0 Absolute Monocytes 0.3 Absolute Eosinophils 0.0 Absolute Basophils 0.0 Carbonic Acid HCO3/H2CO3 Ratio ABG pH ABG pCO2 ABG pO2 ABG HCO3 ABG O2 Saturation ABG Base Excess FiO2 Sodium 122.1 L Potassium 6.9 H* Chloride 93 L Carbon Dioxide 21 L Anion Gap 8 BUN 20 Creatinine 1.31 H Est GFR ( Amer) > 60 Est GFR (Non-Af Amer) 53 L Glucose 108 Lactic Acid 2.0 Calcium 8.3 L Phosphorus Magnesium Total Bilirubin 0.4 AST 34 ALT 23 Alkaline Phosphatase 72 Total Protein 5.4 L Albumin 3.1 L Urine Color Urine Appearance Urine pH Ur Specific [place] Urine Protein Urine Glucose (UA) Urine Ketones Urine Blood Urine Nitrite Ur Leukocyte Esterase Urine WBC (Auto) Urine RBC (Auto) 05/13/19 05/13/19 05/13/19 16:02 16:02 17:51 WBC RBC Hgb Hct MCV MCH MCHC RDW Plt Count Seg Neutrophils % Lymphocytes % Monocytes % Eosinophils % Basophils % Absolute Neutrophils Absolute Lymphocytes Absolute Monocytes Absolute Eosinophils Absolute Basophils Carbonic Acid 1.19 1.20 HCO3/H2CO3 Ratio 17:1 17:1 ABG pH 7.35 7.33 L ABG pCO2 39.6 39.8 ABG pO2 306.5 H 226.5 H ABG HCO3 21.3 20.6 ABG O2 Saturation 99.7 H 99.4 H ABG Base Excess -4.0 -5.0 FiO2 100% 100% Sodium Potassium Chloride Carbon Dioxide Anion Gap BUN Creatinine Est GFR ( Amer) Est GFR (Non-Af Amer) Glucose Lactic Acid Calcium Phosphorus Magnesium Total Bilirubin AST ALT Alkaline Phosphatase Total Protein Albumin Urine Color YELLOW Urine Appearance SLIGHTLY-CLOUDY Urine pH 7.0 Ur Specific [place] 1.008 Urine Protein NEGATIVE Urine Glucose (UA) NEGATIVE Urine Ketones NEGATIVE Urine Blood NEGATIVE Urine Nitrite NEGATIVE Ur Leukocyte Esterase NEGATIVE Urine WBC (Auto) 1 Urine RBC (Auto) 1 05/13/19 05/13/19 05/14/19 21:45 22:38 03:26 WBC Cancelled RBC Cancelled Hgb Cancelled Hct Cancelled MCV Cancelled MCH Cancelled MCHC Cancelled RDW Cancelled Plt Count Cancelled Seg Neutrophils % Cancelled Lymphocytes % Cancelled Monocytes % Cancelled Eosinophils % Cancelled Basophils % Cancelled Absolute Neutrophils Cancelled Absolute Lymphocytes Cancelled Absolute Monocytes Cancelled Absolute Eosinophils Cancelled Absolute Basophils Cancelled Carbonic Acid HCO3/H2CO3 Ratio ABG pH ABG pCO2 ABG pO2 ABG HCO3 ABG O2 Saturation ABG Base Excess FiO2 Sodium Cancelled 126.0 L Potassium Cancelled 4.7 D Chloride Cancelled 98 Carbon Dioxide Cancelled 21 L Anion Gap Cancelled 7 BUN Cancelled 23 H Creatinine Cancelled 1.33 H Est GFR ( Amer) Cancelled > 60 Est GFR (Non-Af Amer) Cancelled 53 L Glucose Cancelled 39 L* Lactic Acid Calcium Cancelled 8.0 L Phosphorus Magnesium Cancelled 1.9 Total Bilirubin AST ALT Alkaline Phosphatase Total Protein Albumin Urine Color Urine Appearance Urine pH Ur Specific [place] Urine Protein Urine Glucose (UA) Urine Ketones Urine Blood Urine Nitrite Ur Leukocyte Esterase Urine WBC (Auto) Urine RBC (Auto) 05/14/19 05/14/19 05/14/19 03:26 03:55 05:23 WBC 12.0 H RBC 4.02 L Hgb 13.5 D Hct 39.1 MCV 97 MCH 33.6 H MCHC 34.5 RDW 13.0 Plt Count 152 Seg Neutrophils % Not Reportable Lymphocytes % Not Reportable Monocytes % Not Reportable Eosinophils % Not Reportable Basophils % Not Reportable Absolute Neutrophils Not Reportable Absolute Lymphocytes Not Reportable Absolute Monocytes Not Reportable Absolute Eosinophils Not Reportable Absolute Basophils Not Reportable Carbonic Acid 1.01 L HCO3/H2CO3 Ratio 18:1 ABG pH 7.36 ABG pCO2 33.4 L ABG pO2 88.6 ABG HCO3 18.6 L ABG O2 Saturation 96.6 ABG Base Excess -5.8 FiO2 28 FLOW RATE Sodium 125.2 L Potassium 4.8 Chloride 97 L Carbon Dioxide 22 Anion Gap 6 BUN 25 H Creatinine 1.37 H Est GFR ( Amer) > 60 Est GFR (Non-Af Amer) 51 L Glucose 207 H Lactic Acid Calcium 7.6 L Phosphorus 2.2 L Magnesium 1.7 Total Bilirubin 0.6 AST 154 H ALT 45 Alkaline Phosphatase 83 Total Protein 5.0 L Albumin 2.6 L Urine Color Urine Appearance Urine pH Ur Specific [place] Urine Protein Urine Glucose (UA) Urine Ketones Urine Blood Urine Nitrite Ur Leukocyte Esterase Urine WBC (Auto) Urine RBC (Auto) 05/13/19 05/13/19 05/14/19 16:02 16:02 03:26 Creatine Kinase 268 H 4919 H CK-MB (CK-2) Troponin I 0.050 05/14/19 03:26 Creatine Kinase CK-MB (CK-2) 12.00 H Troponin I Impressions: Chest X-Ray 05/13/19 16:00 IMPRESSION: NO ACUTE RADIOGRAPHIC FINDING IN THE CHEST. SUPPORT DEVICE(S) IN EXPECTED LOCATIONS. Cervical Spine CT 05/13/19 16:02 IMPRESSION: CHRONIC DEGENERATIVE CHANGES. NO ACUTE FINDINGS. Head CT 05/13/19 16:02 IMPRESSION: CHRONIC CHANGES OF ATROPHY AND MICROVASCULAR ISCHEMIA. NO ACUTE PROCESS. EVIDENCE OF ACUTE STROKE: NO. Assessment & Plan - Diagnosis (1) Acute and chronic respiratory failure Qualifiers: Respiratory failure complication: hypoxia Qualified Code(s): J96.21 - Acute and chronic respiratory failure with hypoxia Is this a current diagnosis for this admission?: Yes Plan: Long-acting muscarinic agent plus long-acting beta agonist antibiotics (2) ETOH abuse Is this a current diagnosis for this admission?: Yes Plan: D.T. precautions (3) Rhabdomyolysis Qualifiers: Rhabdomyolysis type: non-traumatic Qualified Code(s): M62.82 - Rhabdomyolysis Is this a current diagnosis for this admission?: Yes Plan: Copious fluids as tolerated - Time Total Critical Time (Minutes): 50
--- NOTE | 2019-05-18 10:57 | PDOC PROGRESS REPORT ---
Subjective Progress Note for:: 05/15/19 Subjective:: Remains intubated and sedated Reason For Visit: UNCONSCIOUS UNKNOWN,HEAT STROKE Physical Exam Vital Signs: Temp Pulse Resp BP Pulse Ox 97.2 F 82 14 125/44 L 99 05/15/19 08:00 05/15/19 08:57 05/15/19 08:00 05/15/19 08:00 05/15/19 08:00 Intake & Output 05/14/19 05/15/19 05/16/19 06:59 06:59 06:59 Intake Total 3866 5787 52 Output Total 1620 720 40 Balance 2246 5067 12 Weight 76.2 kg 82.9 kg General appearance: PRESENT: no acute distress, disheveled, well-developed, well-nourished. ABSENT: cooperative Head exam: PRESENT: atraumatic, normocephalic Eye exam: PRESENT: conjunctiva pale. ABSENT: EOMI, nystagmus, periorbital swelling Mouth exam: PRESENT: dry mucosa, neck supple, tongue midline, other - Tracheal tube Neck exam: ABSENT: carotid bruit, full ROM, JVD, lymphadenopathy, meningismus, tenderness, thyromegaly, tracheal deviation, tracheostomy, other Respiratory exam: PRESENT: decreased breath sounds, rales, rhonchi, unlabored, wheezes. ABSENT: retraction, stridor Cardiovascular exam: PRESENT: RRR, +S1, +S2, tachycardia Pulses: PRESENT: normal radial pulses GI/Abdominal exam: PRESENT: soft. ABSENT: mass Gentrourinary exam: PRESENT: indwelling catheter Extremities exam: ABSENT: calf tenderness, clubbing, joint swelling, pedal edema Musculoskeletal exam: ABSENT: ambulatory, deformity, dislocation Neurological exam: ABSENT: awake Skin exam: PRESENT: dry, pallor, warm Results Laboratory Results: 05/15/19 03:10 05/15/19 03:10 05/14/19 05/14/19 05/15/19 14:10 14:10 03:10 WBC RBC Hgb Hct MCV MCH MCHC RDW Plt Count Seg Neutrophils % Lymphocytes % Monocytes % Eosinophils % Basophils % Absolute Neutrophils Absolute Lymphocytes Absolute Monocytes Absolute Eosinophils Absolute Basophils Carbonic Acid 0.96 L 1.09 HCO3/H2CO3 Ratio 19:1 17:1 ABG pH 7.38 7.33 L ABG pCO2 31.9 L 36.3 ABG pO2 79.2 L 68.8 L ABG HCO3 18.3 L 18.6 L ABG O2 Saturation 95.6 92.7 L ABG Base Excess -5.8 -6.7 FiO2 21% 25% Sodium Potassium Chloride Carbon Dioxide Anion Gap BUN Creatinine Est GFR ( Amer) Est GFR (Non-Af Amer) Glucose Lactic Acid 1.2 Calcium Phosphorus Magnesium Total Bilirubin AST ALT Alkaline Phosphatase Total Protein Albumin 05/15/19 05/15/19 05/15/19 03:10 03:10 03:10 WBC 12.5 H RBC 3.45 L Hgb 11.5 L Hct 34.1 L MCV 99 H MCH 33.5 H MCHC 33.9 RDW 13.1 Plt Count 132 L Seg Neutrophils % 77.1 Lymphocytes % 15.0 Monocytes % 7.7 Eosinophils % 0.0 Basophils % 0.2 Absolute Neutrophils 9.7 H Absolute Lymphocytes 1.9 Absolute Monocytes 1.0 Absolute Eosinophils 0.0 Absolute Basophils 0.0 Carbonic Acid HCO3/H2CO3 Ratio ABG pH ABG pCO2 ABG pO2 ABG HCO3 ABG O2 Saturation ABG Base Excess FiO2 Sodium 128.4 L Potassium 4.1 Chloride 105 Carbon Dioxide 19 L Anion Gap 4 L BUN 21 H Creatinine 1.08 Est GFR ( Amer) > 60 Est GFR (Non-Af Amer) > 60 Glucose 121 H Lactic Acid 1.0 Calcium 6.6 L* Phosphorus 3.8 Magnesium 1.7 Total Bilirubin 0.4 AST 279 H ALT 317 H Alkaline Phosphatase 49 Total Protein 3.6 L Albumin 1.7 L 05/13/19 05/13/19 05/14/19 16:02 16:02 03:26 Creatine Kinase 268 H 4919 H CK-MB (CK-2) Troponin I 0.050 05/14/19 05/14/19 05/14/19 03:26 14:10 18:25 Creatine Kinase 1598 H CK-MB (CK-2) 12.00 H 10.30 H Troponin I 05/15/19 03:15 Creatine Kinase CK-MB (CK-2) 8.36 H Troponin I Impressions: Cervical Spine CT 05/13/19 16:02 IMPRESSION: CHRONIC DEGENERATIVE CHANGES. NO ACUTE FINDINGS. Head CT 05/13/19 16:02 IMPRESSION: CHRONIC CHANGES OF ATROPHY AND MICROVASCULAR ISCHEMIA. NO ACUTE PROCESS. EVIDENCE OF ACUTE STROKE: NO. Assessment & Plan - Diagnosis (1) Acute and chronic respiratory failure Qualifiers: Respiratory failure complication: hypoxia Qualified Code(s): J96.21 - Acute and chronic respiratory failure with hypoxia Is this a current diagnosis for this admission?: Yes Plan: Long-acting muscarinic agent plus long-acting beta agonist antibiotics (2) ETOH abuse Is this a current diagnosis for this admission?: Yes Plan: D.T. precautions (3) Rhabdomyolysis Qualifiers: Rhabdomyolysis type: non-traumatic Qualified Code(s): M62.82 - Rhabd omyolysis Is this a current diagnosis for this admission?: Yes Plan: Copious fluids as tolerated - Time Total Critical Time (Minutes): 40
--- NOTE | 2019-06-05 13:38 | Progress Note ---
Provider Note Provider Note: Medical record clarification: 1) etiology of terry-there was conflicting information regarding the causative agent for the patient's terry. Certain information reported that the patient was found down. Other information reported that he was found on his back and clutching his chest. Based on the location of the terry and the patient's presentation, in my medical opinion, the terry were most likely caused by sun exposure. Again this is based on the pattern of the terry, location and lack of pathology to the patient's posterior side. 2) after review of the [place] table of surface area estimation a bit of breakdown of surface area is as follows; * Right thigh 9.5% * Left thigh 9.5% * Right leg including knee 7% * Left leg including knee 7% * Abdomen approximately 7% Estimated total body surface area approximately 40%. The majority of this was blistered skin qualifying as stage II terry. There were a few darker areas that could represent deeper tissue injury but accurate assessment cannot be determined at this time. The debridement was partial-thickness (removing nonviable epidermal tissue with forceps and scissors) greater than 10% body surface area
== END 2019-05-15 15:00 | disposition short-term general hospital (02) | DRG 922 ==
LOC: ER 15:58 → EH 17:59 → ICU 20:58
PROVIDERS: ADMIT Internal Medicine; ATTEND Internal Medicine
PROC: 0DH67UZ Insertion of Feeding Device into Stomach, Via Natural or Artificial Opening (ICD-10-PCS; 2019-05-13)
PROC: 5A1945Z Respiratory Ventilation, 24-96 Consecutive Hours (ICD-10-PCS; 2019-05-13)
PROC: 0HDLXZZ Extraction of Left Lower Leg Skin, External Approach (ICD-10-PCS; 2019-05-13)
PROC: 0HDHXZZ Extraction of Right Upper Leg Skin, External Approach (ICD-10-PCS; 2019-05-13)
PROC: 0HDJXZZ Extraction of Left Upper Leg Skin, External Approach (ICD-10-PCS; 2019-05-13)
PROC: 0HDKXZZ Extraction of Right Lower Leg Skin, External Approach (ICD-10-PCS; 2019-05-13)
PROC: 02HV33Z Insertion of Infusion Device into Superior Vena Cava, Percutaneous Approach (ICD-10-PCS; principal; 2019-05-14)
PROC: HZ2ZZZZ Detoxification Services for Substance Abuse Treatment (ICD-10-PCS; 2019-05-14)
PROC: 0HD7XZZ Extraction of Abdomen Skin, External Approach (ICD-10-PCS; 2019-05-15)
PROC: 0H9LXZZ Drainage of Left Lower Leg Skin, External Approach (ICD-10-PCS; 2019-05-15)
DX: T67.0XXA Heatstroke and sunstroke, initial encounter (principal); J96.21 Acute and chronic respiratory failure with hypoxia; T79.4XXA Traumatic shock, initial encounter; E87.1 Hypo-osmolality and hyponatremia; N17.9 Acute kidney failure, unspecified; M62.82 Rhabdomyolysis; F10.239 Alcohol dependence with withdrawal, unspecified; L55.1 Sunburn of second degree; L55.2 Sunburn of third degree; T63.421A Toxic effect of venom of ants, accidental (unintentional), initial encounter; E87.5 Hyperkalemia; D64.9 Anemia, unspecified; E83.39 Other disorders of phosphorus metabolism; E88.09 Other disorders of plasma-protein metabolism, not elsewhere classified; F03.90 Unspecified dementia, unspecified severity, without behavioral disturbance, psychotic disturbance, mood disturbance, and anxiety; Z78.1 Physical restraint status; Z91.81 History of falling
CPT/HCPCS: 36415; 51702; 70450; 71045; 72125; 80053; 80074; 80202; 80307; 81001; 82550; 82553; 82570; 82803; 82962; 83605; 83735; 84100; 84300; 84484; 85025; 85610; 85730; 87040; 87086; 93005; 93010; 94002; 94003; 96361; 96365; 96367; 96368; 96375; 99291; C1751; J0610; J1250; J1644; J1815; J2250; J2370; J2543; J2704; J3010; J3370; J3411; J3475; J3490; J7030; J7050; J7060; J7120; J7121; P9047; S0164

== ENCOUNTER 2019-08-16 20:39 | Inpatient (IN) | payer MEDICARE, BC ==
[2019-08-16] MEDS ORDERED: IPRATROPIUM/ALBUTEROL 0.5-2.5 MG/3 ML AMPUL NEB PRN (21:38)
[2019-08-16] MEDS ORDERED: ACETAMINOPHEN 325 MG TABLET PEG PRN (21:38)
[2019-08-16] MEDS ORDERED: ONDANSETRON 4 MG TAB.RAPDIS PO PRN (21:38)
[2019-08-16] MEDS ORDERED: POLYETHYLENE GLYCOL 3350 POWDER 17 GM/1 PACKET PEG PRN (21:57)
[2019-08-16] MEDS ORDERED: BISACODYL 10 MG SUPP.RECT PR PRN (21:57)
[2019-08-16] MEDS ORDERED: CALCIUM CARBONATE 500 MG TABLET PO PRN (21:59)
[2019-08-16] MEDS ORDERED: CARBOXYMETHYLCELLULOSE SOD 0.5% 0.4 ML DROPERETTE OU PRN (22:00)
[2019-08-16] MEDS ORDERED: HYDRALAZINE HCL INJ/PF 20 MG/1 ML SDV IV PRN (22:00)
[2019-08-16] MEDS ORDERED: ENOXAPARIN SODIUM INJ 30 MG/0.3 ML DISP.SYRIN SUBCUT SCH (22:00)
[2019-08-16] MEDS ORDERED: RISPERIDONE 1 MG TABLET PO PRN (22:04)
[2019-08-16] MEDS ORDERED: OXYCODONE HCL IR 5 MG TABLET PEG PRN (22:11)
[2019-08-16] MEDS ORDERED: PHARMACY COMMUNICATION ORDER MC NR (22:15)
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
[2019-08-17] MEDS: PANTOPRAZOLE SODIUM 40 MG PACKET.DR GT SCH ×2 (05:09→06:32)
[2019-08-17 06:19] LABS: ABSOLUTE EOSINOPHILS # (AUTO) 0.3 10^3/uL (0.0-0.6); ABSOLUTE MONOCYTES (AUTO) 0.8 10^3/uL (0.1-1.4); ABSOLUTE NEUT (AUTO) 5.8 10^3/uL (1.7-8.2); BASOPHILS % (AUTO) 0.5 % (0-2); EOSINOPHILS % (AUTO) 2.9 % (0-6); HEMATOCRIT 28.8 % (37.9-51.0); HEMOGLOBIN 9.9 g/dL (13.5-17.0); LYMPHOCYTES % (AUTO) 22.4 % (13-45); MEAN CORPUSCULAR HEMOGLOBIN 31.2 pg (27.0-33.4); MEAN CORPUSCULAR HGB CONC 34.5 g/dL (32.0-36.0); MEAN CORPUSCULAR VOLUME 91 fl (80-97); MONOCYTES % (AUTO) 9.1 % (3-13); PLATELET COUNT 232 10^3/uL (150-450); RED BLOOD COUNT 3.18 10^6/uL (4.35-5.55); SEGMENTED NEUTROPHILS % (AUTO) 65.1 % (42-78); TOTAL CELLS COUNTED % (AUTO) 100 %; WHITE BLOOD COUNT 8.9 10^3/uL (4.0-10.5)
[2019-08-17 06:35] LABS: ALBUMIN 3.5 g/dL (3.5-5.0); ALKALINE PHOSPHATASE 126 U/L (38-126); ANION GAP 8 (5-19); ASPARTATE AMINO TRANSFERASE 35 U/L (17-59); BILIRUBIN,DIRECT 0.1 mg/dL (0.0-0.4); BILIRUBIN,TOTAL 0.5 mg/dL (0.2-1.3); BLOOD UREA NITROGEN 28 mg/dL (7-20); CALCIUM 9.7 mg/dL (8.4-10.2); CARBON DIOXIDE 31 mmol/L (22-30); CHLORIDE 96 mmol/L (98-107); CHOLESTEROL 119.62 mg/dL (0-200); GLUCOSE 104 mg/dL (75-110); PHOSPHORUS 3.5 mg/dL (2.5-4.5); POTASSIUM 3.8 mmol/L (3.6-5.0); TOTAL PROTEIN 7.2 g/dL (6.3-8.2); TRIGLYCERIDES 80 mg/dL (<150)
[2019-08-17 06:46] LABS: DIRECT LDL 67 mg/dL (<100)
--- NOTE | 2019-08-17 06:57 | PDOC CONSULTATION ---
Consultation Consult Date: 08/17/19 Provider Consulted: SURGICAL SURGICALIST History of Present Illness Admission Date/PCP: 08/16/19 20:39 IHSAN MONTERROSO MD History of Present Illness: BRENDA MA JR is a 74 year old male with a history of alcohol abuse, altered mental status, and a gastrostomy for supplemental feedings due to malnutrition. The patient was admitted for failure to thrive and altered mental status. The nursing staff reports that they cannot flush his gastrostomy. The patient is awake today, but he is not alert. The medical history comes from the nursing staff and the medical record, as the patient cannot relay any of his pertinent history. Past Medical History Cardiac Medical History: Reports: Hypertension Pulmonary Medical History: Reports: Chronic Obstructive Pulmonary Disease (COPD) EENT Medical History: Reports: None Neurological Medical History: Denies: Ischemic CVA, Seizures Endocrine Medical History: Denies: Diabetes Mellitus Type 2 Renal/ Medical History: Denies: End Stage Renal Disease Malignancy Medical History: Reports: None GI Medical History: Denies: Cirrhosis, Crohn's Disease, Hepatitis, Peptic Ulcer Disease, Ulcerative Colitis Musculoskeltal Medical History: Reports: Arthritis Skin Medical History: Reports: None Psychiatric Medical History: Reports: Alcohol Dependency, Tobacco Dependency Traumatic Medical History: Reports: Other - Third-degree terry Hematology: Reports: None Infectious Medical History: Reports: None Past Surgical History Past Surgical History: Reports: Orthopedic Surgery - back, Other - Multiple split thickness skin graft Social History Lives with: Alone Smoking Status: Former Smoker Electronic Cigarette use?: No Frequency of Alcohol Use: None Hx Recreational Drug Use: No Drugs: None Hx Prescription Drug Abuse: No - Advance Directive Resuscitation Status: Do Not Resuscitate Family History Family History: Reviewed & Not Pertinent Parental Family History Reviewed: Yes Children Family History Reviewed: Yes Sibling(s) Family History Reviewed.: Yes Medication/Allergy Home Medications: Aspirin/Dipyridamole [Aspirin-Dipyridam ER 25-200 mg] 1 cap PO Q12 05/14/19 Bumetanide [Bumex 1 mg Tablet] 1 mg PO DAILY 05/14/19 Clonazepam [Klonopin 1 mg Tablet] 1 mg PO Q8HP PRN 05/14/19 Enalapril Maleate [Vasotec 2.5 mg Tablet] 2.5 mg PO Q12 05/14/19 Esomeprazole Magnesium 40 mg PO DAILY 05/14/19 Labetalol HCl [Normodyne 200 mg Tablet] 100 mg PO Q12 05/14/19 Potassium Chloride [K-Tab ER] 20 meq PO DAILY 05/14/19 Trazodone HCl [Desyrel 50 mg Tablet] 50 mg PO HSP PRN 05/14/19 Venlafaxine HCl ER [Effexor Xr 37.5 mg Cap.sr] 37.5 mg PO DAILY 05/14/19 Allergies/Adverse Reactions: hydroxyzine [From Vistaril] Allergy (Severe, Verified 05/13/19 23:18) Anaphylaxis meperidine [From Demerol] Allergy (Verified 05/13/19 21:44) Review of Systems ROS unobtainable: Due to mental status Physical Exam Vital Signs: Temp Pulse Resp BP Pulse Ox 98.5 F 95 16 153/50 H 93 08/16/19 21:15 08/16/19 21:15 08/16/19 21:15 08/16/19 21:15 08/16/19 21:15 Intake & Output 08/15/19 08/16/19 08/17/19 06:59 06:59 06:59 Output Total 550 Balance -550 Weight 67.9 kg General appearance: PRESENT: no acute distress, thin Head exam: PRESENT: atraumatic, normocephalic Eye exam: PRESENT: EOMI, PERRLA. ABSENT: scleral icterus Mouth exam: PRESENT: moist, neck supple Neck exam: ABSENT: tenderness, thyromegaly, tracheal deviation Respiratory exam: PRESENT: clear to auscultation daniel, unlabored. ABSENT: chest wall tenderness, tachypnea, wheezes Cardiovascular exam: PRESENT: RRR Pulses: PRESENT: normal radial pulses GI/Abdominal exam: PRESENT: soft. ABSENT: distended, tenderness Rectal exam: PRESENT: deferred Extremities exam: ABSENT: clubbing Musculoskeletal exam: ABSENT: deformity Neurological exam: PRESENT: altered, awake Psychiatric exam: PRESENT: agitated. ABSENT: anxious, depressed Focused psych exam: PRESENT: psychomotor agitation Skin exam: PRESENT: other - Well-healed split thickness skin grafts over the patient's abdomen and anterior thighs. Results Laboratory Results: 08/17/19 05:25 08/17/19 05:25 08/17/19 08/17/19 05:25 05:25 WBC 8.9 RBC 3.18 L Hgb 9.9 L Hct 28.8 L MCV 91 MCH 31.2 MCHC 34.5 RDW 16.0 H Plt Count 232 Seg Neutrophils % 65.1 Sodium 135.3 L Potassium 3.8 Chloride 96 L Carbon Dioxide 31 H Anion Gap 8 BUN 28 H Creatinine 0.72 Est GFR ( Amer) > 60 Glucose 104 Calcium 9.7 Phosphorus 3.5 Magnesium 2.1 Total Bilirubin 0.5 AST 35 Alkaline Phosphatase 126 Total Protein 7.2 Albumin 3.5 Triglycerides 80 Cholesterol 119.62 LDL Cholesterol Direct 67 VLDL Cholesterol 16.0 HDL Cholesterol 32 L Assessment & Plan - Diagnosis (1) Gastrostomy tube dysfunction Is this a current diagnosis for this admission?: Yes - Plan Summary Plan Summary: This is a 74-year-old male with a gastrostomy for supplemental feedings due to malnutrition. The nursing staff reports that they cannot flush the patient's gastrostomy. I have evaluated the gastrostomy. There is tube feedings within the tube. With some effort, the tube was adequately flushed. It now flushes without difficulty. At this time, the gastrostomy does not need to be changed or replaced. Continue using it as previously indicated. Surgery will sign off at this time. Please renotify with any questions or concerns.
[2019-08-17] MEDS ORDERED: NICOTINE 7 MG/24 HR PATCH.TD24 TD SCH (10:00)
[2019-08-17] MEDS ORDERED: AMLODIPINE BESYLATE 10 MG TABLET PEG SCH (10:00)
[2019-08-17] MEDS ORDERED: MUPIROCIN 2% OINTMENT 22 GM TP SCH ×2 (10:00→22:00)
[2019-08-17] MEDS: ASCORBIC ACID 500 MG TABLET PEG SCH (12:11)
[2019-08-17] MEDS: ENOXAPARIN SODIUM INJ 30 MG/0.3 ML DISP.SYRIN SUBCUT SCH (12:11)
[2019-08-17] MEDS: THIAMINE HCL 100 MG TABLET PEG SCH (12:12)
[2019-08-17] MEDS: MULTIVITAMIN ORAL LIQUID 60 ML PEG SCH (12:13)
[2019-08-17] MEDS: FOLIC ACID 1 MG TABLET PEG SCH (12:15)
[2019-08-17] MEDS: RISPERIDONE 1 MG TABLET PEG PRN (12:15)
[2019-08-17] MEDS: DOCUSATE SODIUM 100 MG/10 ML UDC PEG SCH (12:15)
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
[2019-08-17] MEDS: MELATONIN 3 MG TABLET PO SCH (21:15)
[2019-08-17] MEDS: DOXAZOSIN MESYLATE 2 MG TABLET PEG SCH (21:16)
[2019-08-17] MEDS: RISPERIDONE 1 MG TABLET PEG SCH (21:16)
[2019-08-17] MEDS: OXYCODONE HCL IR 5 MG TABLET PEG PRN (21:16)
[2019-08-18] MEDS: RISPERIDONE 0.25 MG TABLET PEG SCH (06:05)
[2019-08-18] MEDS: PANTOPRAZOLE SODIUM 40 MG PACKET.DR GT SCH (06:05)
[2019-08-18] MEDS: MUPIROCIN 2% OINTMENT 22 GM TP SCH (10:52)
[2019-08-18] MEDS: FOLIC ACID 1 MG TABLET PEG SCH (10:53)
[2019-08-18] MEDS: ASCORBIC ACID 500 MG TABLET PEG SCH (10:53)
[2019-08-18] MEDS: AMLODIPINE BESYLATE 5 MG TABLET PEG SCH (10:53)
[2019-08-18] MEDS: THIAMINE HCL 100 MG TABLET PEG SCH (10:53)
[2019-08-18] MEDS: MULTIVITAMIN ORAL LIQUID 60 ML PEG SCH (10:54)
[2019-08-18] MEDS: ENOXAPARIN SODIUM INJ 30 MG/0.3 ML DISP.SYRIN SUBCUT SCH (10:54)
[2019-08-18] MEDS: DOCUSATE SODIUM 100 MG/10 ML UDC PEG SCH (10:54)
[2019-08-18] MEDS: AMINO AC/PROTEIN HYDR/WHEY PRO 11 GM/45 ML PKT NG SCH ×2 (14:53→17:50)
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
[2019-08-18] MEDS: MELATONIN 3 MG TABLET PO SCH (21:38)
[2019-08-18] MEDS: DOXAZOSIN MESYLATE 2 MG TABLET PEG SCH (21:39)
[2019-08-18] MEDS: RISPERIDONE 1 MG TABLET PEG SCH (21:40)
[2019-08-19] MEDS: PANTOPRAZOLE SODIUM 40 MG PACKET.DR GT SCH (05:36)
[2019-08-19] MEDS: RISPERIDONE 0.25 MG TABLET PEG SCH (05:36)
[2019-08-19] MEDS ORDERED: LACTOBACILLUS ACIDOPHILUS 250 MG TAB PEG SCH (10:00)
[2019-08-19] MEDS: ASCORBIC ACID 500 MG TABLET PEG SCH (10:29)
[2019-08-19] MEDS: FOLIC ACID 1 MG TABLET PEG SCH (10:29)
[2019-08-19] MEDS: THIAMINE HCL 100 MG TABLET PEG SCH (10:29)
[2019-08-19] MEDS: OXYCODONE HCL IR 5 MG TABLET PEG PRN (10:29)
[2019-08-19] MEDS: AMLODIPINE BESYLATE 5 MG TABLET PEG SCH (10:30)
[2019-08-19] MEDS: RISPERIDONE 1 MG TABLET PEG PRN (10:31)
[2019-08-19] MEDS: MUPIROCIN 2% OINTMENT 22 GM TP SCH (10:32)
[2019-08-19] MEDS: AMINO AC/PROTEIN HYDR/WHEY PRO 11 GM/45 ML PKT NG SCH ×3 (10:32→17:50)
[2019-08-19] MEDS: MULTIVITAMIN ORAL LIQUID 60 ML PEG SCH (10:33)
[2019-08-19] MEDS: ENOXAPARIN SODIUM INJ 30 MG/0.3 ML DISP.SYRIN SUBCUT SCH (10:34)
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
[2019-08-19] MEDS ORDERED: HALOPERIDOL LACTATE INJ 5 MG/1 ML VIAL IV ONE (13:45)
[2019-08-19] MEDS ORDERED: OXYCODONE HCL IR 5 MG TABLET PO PRN ×2 (14:00)
[2019-08-19] MEDS: LACTOBACILLUS ACIDOPHILUS 250 MG TAB PO SCH (17:50)
[2019-08-19] MEDS: DOXAZOSIN MESYLATE 2 MG TABLET PO SCH (21:18)
[2019-08-19] MEDS: BUSPIRONE HCL 10 MG TABLET PO SCH (21:19)
[2019-08-19] MEDS: MELATONIN 3 MG TABLET PO SCH (21:19)
[2019-08-19] MEDS ORDERED: RISPERIDONE 1 MG TABLET PO SCH ×2 (22:00)
[2019-08-20] MEDS: RISPERIDONE 1 MG TABLET PO SCH ×2 (05:41→15:52)
[2019-08-20] MEDS: PANTOPRAZOLE SODIUM 40 MG PACKET.DR GT SCH (05:41)
[2019-08-20 05:58] LABS: HEMATOCRIT 27.6 % (37.9-51.0); HEMOGLOBIN 9.4 g/dL (13.5-17.0); MEAN CORPUSCULAR HGB CONC 34.1 g/dL (32.0-36.0); MEAN CORPUSCULAR VOLUME 91 fl (80-97); PLATELET COUNT 225 10^3/uL (150-450); RED BLOOD COUNT 3.04 10^6/uL (4.35-5.55); RED CELL DISTRIBUTION WIDTH 15.9 % (11.5-14.0); WHITE BLOOD COUNT 6.9 10^3/uL (4.0-10.5)
[2019-08-20] MEDS ORDERED: RISPERIDONE 1 MG TABLET PO SCH ×2 (06:00→16:00)
[2019-08-20 06:18] LABS: ANION GAP 7 (5-19); BLOOD UREA NITROGEN 35 mg/dL (7-20); CALCIUM 9.4 mg/dL (8.4-10.2); CARBON DIOXIDE 29 mmol/L (22-30); CHLORIDE 101 mmol/L (98-107); GLUCOSE 107 mg/dL (75-110); POTASSIUM 4.2 mmol/L (3.6-5.0)
[2019-08-20] MEDS: BUSPIRONE HCL 10 MG TABLET PO SCH ×3 (08:34→22:22)
[2019-08-20] MEDS: LACTOBACILLUS ACIDOPHILUS 250 MG TAB PO SCH ×2 (09:48→18:10)
[2019-08-20] MEDS: THIAMINE HCL 100 MG TABLET PO SCH (09:49)
[2019-08-20] MEDS: FOLIC ACID 1 MG TABLET PO SCH (09:49)
[2019-08-20] MEDS: AMLODIPINE BESYLATE 5 MG TABLET PO SCH (09:49)
[2019-08-20] MEDS: AMINO AC/PROTEIN HYDR/WHEY PRO 11 GM/45 ML PKT NG SCH ×3 (09:50→18:09)
[2019-08-20] MEDS: ASCORBIC ACID 500 MG TABLET PO SCH (09:50)
[2019-08-20] MEDS: MULTIVITAMIN ORAL LIQUID 60 ML PO SCH (09:51)
[2019-08-20] MEDS: ENOXAPARIN SODIUM INJ 30 MG/0.3 ML DISP.SYRIN SUBCUT SCH (09:52)
[2019-08-20] MEDS: MUPIROCIN 2% OINTMENT 22 GM TP SCH (09:53)
[2019-08-20] MEDS ORDERED: LOPERAMIDE HCL 2 MG CAPSULE PO PRN (14:32)
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
[2019-08-20] MEDS: DOXAZOSIN MESYLATE 2 MG TABLET PO SCH (22:22)
[2019-08-20] MEDS: MELATONIN 3 MG TABLET PO SCH (22:23)
[2019-08-21] MEDS: PANTOPRAZOLE SODIUM 40 MG PACKET.DR GT SCH (05:43)
[2019-08-21] MEDS: RISPERIDONE 1 MG TABLET PO SCH ×2 (05:44→15:31)
[2019-08-21] MEDS: AMINO AC/PROTEIN HYDR/WHEY PRO 11 GM/45 ML PKT NG SCH ×3 (10:52→17:50)
[2019-08-21] MEDS: MULTIVITAMIN ORAL LIQUID 60 ML PO SCH (10:53)
[2019-08-21] MEDS: FOLIC ACID 1 MG TABLET PO SCH (10:53)
[2019-08-21] MEDS: AMLODIPINE BESYLATE 5 MG TABLET PO SCH (10:53)
[2019-08-21] MEDS: THIAMINE HCL 100 MG TABLET PO SCH (10:53)
[2019-08-21] MEDS: ASCORBIC ACID 500 MG TABLET PO SCH (10:53)
[2019-08-21] MEDS: BUSPIRONE HCL 10 MG TABLET PO SCH ×2 (10:54→21:33)
[2019-08-21] MEDS: ENOXAPARIN SODIUM INJ 30 MG/0.3 ML DISP.SYRIN SUBCUT SCH (10:54)
[2019-08-21] MEDS: LACTOBACILLUS ACIDOPHILUS 250 MG TAB PO SCH ×2 (10:54→17:51)
[2019-08-21] MEDS: MUPIROCIN 2% OINTMENT 22 GM TP SCH (10:55)
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
[2019-08-21] MEDS: DOXAZOSIN MESYLATE 2 MG TABLET PO SCH (21:33)
[2019-08-21] MEDS: MELATONIN 3 MG TABLET PO SCH (21:34)
[2019-08-22] MEDS: PANTOPRAZOLE SODIUM 40 MG PACKET.DR GT SCH (05:24)
[2019-08-22] MEDS: RISPERIDONE 1 MG TABLET PO SCH ×2 (05:25→15:21)
[2019-08-22] MEDS: AMINO AC/PROTEIN HYDR/WHEY PRO 11 GM/45 ML PKT NG SCH ×3 (09:11→17:43)
[2019-08-22] MEDS: MUPIROCIN 2% OINTMENT 22 GM TP SCH (09:11)
[2019-08-22] MEDS: AMLODIPINE BESYLATE 5 MG TABLET PO SCH (09:13)
[2019-08-22] MEDS: MULTIVITAMIN ORAL LIQUID 60 ML PO SCH (09:14)
[2019-08-22] MEDS: LACTOBACILLUS ACIDOPHILUS 250 MG TAB PO SCH ×2 (09:15→17:44)
[2019-08-22] MEDS: ASCORBIC ACID 500 MG TABLET PO SCH (09:15)
[2019-08-22] MEDS: FOLIC ACID 1 MG TABLET PO SCH (09:15)
[2019-08-22] MEDS: THIAMINE HCL 100 MG TABLET PO SCH (09:15)
[2019-08-22] MEDS: BUSPIRONE HCL 10 MG TABLET PO SCH ×2 (09:15→21:32)
[2019-08-22] MEDS: ENOXAPARIN SODIUM INJ 30 MG/0.3 ML DISP.SYRIN SUBCUT SCH (09:16)
--- NOTE | 2019-08-22 12:41 | RADIOLOGY REPORT (SQ) ---
EXAM DESCRIPTION: CHEST SINGLE VIEW COMPLETED DATE/TIME: 08/22/2019 12:25 pm REASON FOR STUDY: INCREASED COUGH COMPARISON: 05/15/2019 EXAM PARAMETERS: NUMBER OF VIEWS: One view. TECHNIQUE: Single frontal radiographic view of the chest acquired. RADIATION DOSE: NA LIMITATIONS: None. FINDINGS: LUNGS AND PLEURA: No opacities, masses or pneumothorax. No pleural effusion. MEDIASTINUM AND HILAR STRUCTURES: No masses. Contour normal. HEART AND VASCULAR STRUCTURES: Heart normal in size. Normal vasculature. BONES: No acute findings. HARDWARE: Loop recorder. OTHER: No other significant finding. IMPRESSION: NO ACUTE RADIOGRAPHIC FINDING IN THE CHEST. TECHNICAL DOCUMENTATION: JOB ID: [id number]- All Rights Reserved Reading location - IP/workstation name: [email or web address]
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
[2019-08-22] MEDS: DOXAZOSIN MESYLATE 2 MG TABLET PO SCH (21:31)
[2019-08-22] MEDS: MELATONIN 3 MG TABLET PO SCH (21:31)
[2019-08-23] MEDS: PANTOPRAZOLE SODIUM 40 MG PACKET.DR GT SCH (06:10)
[2019-08-23] MEDS: RISPERIDONE 1 MG TABLET PO SCH ×2 (06:10→16:06)
[2019-08-23] MEDS: BUSPIRONE HCL 10 MG TABLET PO SCH ×2 (10:57→22:09)
[2019-08-23] MEDS: LACTOBACILLUS ACIDOPHILUS 250 MG TAB PO SCH ×2 (10:57→19:39)
[2019-08-23] MEDS: AMLODIPINE BESYLATE 5 MG TABLET PO SCH (10:57)
[2019-08-23] MEDS: ASCORBIC ACID 500 MG TABLET PO SCH (10:57)
[2019-08-23] MEDS: FOLIC ACID 1 MG TABLET PO SCH (10:57)
[2019-08-23] MEDS: THIAMINE HCL 100 MG TABLET PO SCH (10:58)
[2019-08-23] MEDS: AMINO AC/PROTEIN HYDR/WHEY PRO 11 GM/45 ML PKT NG SCH ×3 (10:58→19:39)
[2019-08-23] MEDS: ENOXAPARIN SODIUM INJ 30 MG/0.3 ML DISP.SYRIN SUBCUT SCH (10:58)
[2019-08-23] MEDS: MULTIVITAMIN ORAL LIQUID 60 ML PO SCH (10:59)
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
[2019-08-23] MEDS: MUPIROCIN 2% OINTMENT 22 GM TP SCH (16:02)
[2019-08-23] MEDS: DOXAZOSIN MESYLATE 2 MG TABLET PO SCH (22:09)
[2019-08-23] MEDS: MELATONIN 3 MG TABLET PO SCH (22:09)
[2019-08-24] MEDS: PANTOPRAZOLE SODIUM 40 MG PACKET.DR GT SCH (05:36)
[2019-08-24] MEDS: RISPERIDONE 1 MG TABLET PO SCH ×2 (05:37→18:11)
[2019-08-24] MEDS: ENOXAPARIN SODIUM INJ 30 MG/0.3 ML DISP.SYRIN SUBCUT SCH (10:49)
[2019-08-24] MEDS: BUSPIRONE HCL 10 MG TABLET PO SCH (10:50)
[2019-08-24] MEDS: ASCORBIC ACID 500 MG TABLET PO SCH (10:50)
[2019-08-24] MEDS: FOLIC ACID 1 MG TABLET PO SCH (10:50)
[2019-08-24] MEDS: THIAMINE HCL 100 MG TABLET PO SCH (10:51)
[2019-08-24] MEDS: LACTOBACILLUS ACIDOPHILUS 250 MG TAB PO SCH ×2 (10:51→18:10)
[2019-08-24] MEDS: AMLODIPINE BESYLATE 5 MG TABLET PO SCH (10:51)
[2019-08-24] MEDS: MUPIROCIN 2% OINTMENT 22 GM TP SCH (11:01)
[2019-08-24] MEDS: RISPERIDONE 1 MG TABLET PO PRN (11:33)
[2019-08-24] MEDS: AMINO AC/PROTEIN HYDR/WHEY PRO 11 GM/45 ML PKT NG SCH ×3 (11:34→18:18)
[2019-08-24] MEDS: MULTIVITAMIN ORAL LIQUID 60 ML PO SCH (11:34)
--- NOTE | 2019-08-24 15:05 | PDOC PROGRESS REPORT ---
Subjective Progress Note for:: 08/24/19 Subjective:: This is a 74-year-old male who was initially admitted at [facility] no acute event overnight. And subsequently transferred to [facility] on 05/15/2019 due to third-degree persaud close to 50% BSA. Patient underwent skin grafting at [facility] and had a long hospital course at the [facility] burn unit. He did improve and was transferred back to [facility] on 08/16/2019. Patient continues to deny acute complaints. Denies chest pain or shortness of breath. Continues to await rehab placement. Reason For Visit: PERSAUD S/P SKIN GRAFT,MALNUTRITION,HTN Physical Exam Vital Signs: Temp Pulse Resp BP Pulse Ox 97.6 F 91 20 145/59 H 97 08/24/19 11:56 08/24/19 11:56 08/24/19 11:56 08/24/19 11:56 08/24/19 11:56 Intake & Output 08/23/19 08/24/19 08/25/19 06:59 06:59 06:59 Intake Total 2666 1116 582 Output Total 2150 1075 900 Balance 516 41 -318 Weight 133 lb 13.129 oz 136 lb 3.931 oz General appearance: PRESENT: no acute distress, well-developed, well-nourished Head exam: PRESENT: atraumatic, normocephalic Eye exam: PRESENT: conjunctiva pink, EOMI, PERRLA. ABSENT: scleral icterus Ear exam: PRESENT: normal external ear exam Mouth exam: PRESENT: moist, tongue midline Neck exam: ABSENT: carotid bruit, JVD, lymphadenopathy, thyromegaly Respiratory exam: PRESENT: clear to auscultation daniel. ABSENT: rales, rhonchi, wheezes Cardiovascular exam: PRESENT: RRR. ABSENT: diastolic murmur, rubs, systolic murmur Pulses: PRESENT: normal dorsalis pedis pul GI/Abdominal exam: PRESENT: normal bowel sounds, soft. ABSENT: distended, guarding, mass, organolmegaly, rebound, tenderness Rectal exam: PRESENT: deferred Extremities exam: PRESENT: full ROM. ABSENT: calf tenderness, clubbing, pedal edema Neurological exam: PRESENT: alert, awake, oriented to person, oriented to place, oriented to time, oriented to situation, CN II-XII grossly intact. ABSENT: motor sensory deficit Results Laboratory Results: 08/20/19 05:45 08/20/19 05:45 Impressions: Chest X-Ray 08/22/19 00:00 IMPRESSION: NO ACUTE RADIOGRAPHIC FINDING IN THE CHEST. Assessment and Plan - Diagnosis (1) Persaud involving 10-19% of body surface with 10-19% third degree persaud Is this a current diagnosis for this admission?: Yes Plan: S/P Skin grafting at [facility]. (2) Non-healing wound of lower extremity Qualifiers: Encounter type: initial encounter Laterality: left Qualified Code(s): S81 .802A - Unspecified open wound, left lower leg, initial encounter Is this a current diagnosis for this admission?: Yes Plan: There is a small open area on the left leg. Continue daily wound care. (3) Hypertension Qualifiers: Hypertension type: essential hypertension Qualified Code(s): I10 - Essential (primary) hypertension Is this a current diagnosis for this admission?: Yes Plan: Blood pressures well controlled running. Continue amlodipine. (4) S/P split thickness skin graft Is this a current diagnosis for this admission?: Yes - Time Time Spent with patient: 15-24 minutes
[2019-08-25] MEDS: DOXAZOSIN MESYLATE 2 MG TABLET PO SCH ×2 (00:10→21:31)
[2019-08-25] MEDS: BUSPIRONE HCL 10 MG TABLET PO SCH ×3 (00:10→21:30)
[2019-08-25] MEDS: MELATONIN 3 MG TABLET PO SCH ×2 (00:11→21:31)
[2019-08-25] MEDS: PANTOPRAZOLE SODIUM 40 MG PACKET.DR GT SCH (06:16)
[2019-08-25] MEDS: RISPERIDONE 1 MG TABLET PO SCH ×2 (06:17→16:59)
[2019-08-25] MEDS: AMLODIPINE BESYLATE 5 MG TABLET PO SCH (10:10)
[2019-08-25] MEDS: FOLIC ACID 1 MG TABLET PO SCH (10:11)
[2019-08-25] MEDS: THIAMINE HCL 100 MG TABLET PO SCH (10:11)
[2019-08-25] MEDS: LACTOBACILLUS ACIDOPHILUS 250 MG TAB PO SCH ×2 (10:11→18:14)
[2019-08-25] MEDS: ASCORBIC ACID 500 MG TABLET PO SCH (10:12)
[2019-08-25] MEDS: ENOXAPARIN SODIUM INJ 30 MG/0.3 ML DISP.SYRIN SUBCUT SCH (10:13)
[2019-08-25] MEDS: MULTIVITAMIN ORAL LIQUID 60 ML PO SCH (10:20)
[2019-08-25] MEDS: AMINO AC/PROTEIN HYDR/WHEY PRO 11 GM/45 ML PKT NG SCH ×3 (10:20→18:14)
[2019-08-25] MEDS: MUPIROCIN 2% OINTMENT 22 GM TP SCH (14:12)
--- NOTE | 2019-08-25 16:29 | PDOC PROGRESS REPORT ---
Subjective Progress Note for:: 08/25/19 Subjective:: This is a 74-year-old male who was initially admitted at [facility] no acute event overnight. And subsequently transferred to [facility] on 05/15/2019 due to third-degree persaud close to 50% BSA. Patient underwent skin grafting at [facility] and had a long hospital course at the [facility] burn unit. He did improve and was transferred back to [facility] on 08/16/2019. No acute event overnight. Patient continues to deny acute complaints. Denies chest pain or shortness of breath. His skin grafts have already healed. He has a tiny wound on the left foot that is healing. Continues to await rehab placement. Reason For Visit: PERSAUD S/P SKIN GRAFT,MALNUTRITION,HTN Physical Exam Vital Signs: Temp Pulse Resp BP Pulse Ox 97.9 F 90 16 115/50 L 96 08/25/19 12:00 08/25/19 12:00 08/25/19 12:00 08/25/19 12:00 08/25/19 12:00 Intake & Output 08/24/19 08/25/19 08/26/19 06:59 06:59 06:59 Intake Total 1116 1064 160 Output Total 1075 2600 250 Balance 41 -1536 -90 Weight 136 lb 3.931 oz 129 lb 10.109 oz General appearance: PRESENT: no acute distress Head exam: PRESENT: atraumatic, normocephalic Eye exam: PRESENT: conjunctiva pink, EOMI, PERRLA. ABSENT: scleral icterus Ear exam: PRESENT: normal external ear exam Mouth exam: PRESENT: moist, tongue midline Neck exam: ABSENT: carotid bruit, JVD, lymphadenopathy, thyromegaly Respiratory exam: PRESENT: clear to auscultation daniel. ABSENT: rales, rhonchi, wheezes Cardiovascular exam: PRESENT: RRR. ABSENT: diastolic murmur, rubs, systolic murmur GI/Abdominal exam: PRESENT: normal bowel sounds, soft. ABSENT: distended, guarding, mass, organolmegaly, rebound, tenderness Rectal exam: PRESENT: deferred Neurological exam: PRESENT: alert, awake, oriented to person, oriented to place, oriented to time, CN II-XII grossly intact. ABSENT: motor sensory deficit Results Laboratory Results: 08/20/19 05:45 08/20/19 05:45 Impressions: Chest X-Ray 08/22/19 00:00 IMPRESSION: NO ACUTE RADIOGRAPHIC FINDING IN THE CHEST. Assessment and Plan - Diagnosis (1) Persaud involving 10-19% of body surface with 10-19% third degree persaud Is this a current diagnosis for this admission?: Yes Plan: S/P Skin grafting at [facility]. (2) Non-healing wound of lower extremity Qualifiers: Encounter type: initial encounter Laterality: left Qualified Code(s): S81.802A - Unspecified open wound, left lower leg, initial encounter Is this a current diagnosis for this admission?: Yes Plan: There is a small open area on the left leg. Continue daily wound care. (3) Hypertension Qualifiers: Hypertension type: essential hypertension Qualified Code(s): I10 - Essential (primary) hypertension Is this a current diagnosis for this admission?: Yes Plan: Blood pressures well controlled running. Continue amlodipine. (4) S/P split thickness skin graft Is this a current diagnosis for this admission?: Yes - Time Time Spent with patient: 15-24 minutes
[2019-08-26] MEDS: PANTOPRAZOLE SODIUM 40 MG PACKET.DR GT SCH (05:04)
[2019-08-26] MEDS: RISPERIDONE 1 MG TABLET PO SCH ×2 (05:04→17:47)
[2019-08-26] MEDS: PANTOPRAZOLE SODIUM 40 MG TABLET.DR PO SCH (06:04)
[2019-08-26] MEDS: THIAMINE HCL 100 MG TABLET PO SCH (11:23)
[2019-08-26] MEDS: LACTOBACILLUS ACIDOPHILUS 250 MG TAB PO SCH ×2 (11:23→17:47)
[2019-08-26] MEDS: FOLIC ACID 1 MG TABLET PO SCH (11:23)
[2019-08-26] MEDS: ASCORBIC ACID 500 MG TABLET PO SCH (11:23)
[2019-08-26] MEDS: MULTIVITAMIN ORAL LIQUID 60 ML PO SCH (11:24)
[2019-08-26] MEDS: AMLODIPINE BESYLATE 5 MG TABLET PO SCH (11:24)
[2019-08-26] MEDS: BUSPIRONE HCL 10 MG TABLET PO SCH ×2 (11:24→22:07)
[2019-08-26] MEDS: AMINO AC/PROTEIN HYDR/WHEY PRO 11 GM/45 ML PKT NG SCH ×3 (11:24→17:47)
[2019-08-26] MEDS: ENOXAPARIN SODIUM INJ 30 MG/0.3 ML DISP.SYRIN SUBCUT SCH (11:25)
[2019-08-26] MEDS: MUPIROCIN 2% OINTMENT 22 GM TP SCH (11:25)
--- NOTE | 2019-08-26 11:38 | PDOC PROGRESS REPORT ---
Subjective Progress Note for:: 08/26/19 Subjective:: This is a 74-year-old male who was initially admitted at [facility] no acute event overnight. And subsequently transferred to [facility] on 05/15/2019 due to third-degree persaud close to 50% BSA. Patient underwent skin grafting at [facility] and had a long hospital course at the [facility] burn unit. He did improve and was transferred back to [facility] on 08/16/2019. No acute event overnight. Patient continues to deny acute complaints. Denies chest pain or shortness of breath. His skin grafts have already healed. He has a tiny wound on the left foot that is healing. Continues to await rehab placement. Reason For Visit: PERSAUD S/P SKIN GRAFT,MALNUTRITION,HTN Physical Exam Vital Signs: Temp Pulse Resp BP Pulse Ox 98.3 F 81 19 133/49 H 98 08/26/19 08:00 08/26/19 08:00 08/26/19 08:00 08/26/19 08:00 08/26/19 08:00 Intake & Output 08/25/19 08/26/19 08/27/19 06:59 06:59 06:59 Intake Total 1064 1202 Output Total 2600 1425 Balance -1536 -223 Weight 129 lb 10.109 oz 130 lb 4.691 oz General appearance: PRESENT: no acute distress, well-developed, well-nourished Head exam: PRESENT: atraumatic, normocephalic Eye exam: PRESENT: conjunctiva pink, EOMI, PERRLA. ABSENT: scleral icterus Ear exam: PRESENT: normal external ear exam Mouth exam: PRESENT: moist, tongue midline Neck exam: ABSENT: carotid bruit, JVD, lymphadenopathy, thyromegaly Respiratory exam: PRESENT: clear to auscultation daniel. ABSENT: rales, rhonchi, wheezes Cardiovascular exam: PRESENT: RRR. ABSENT: diastolic murmur, rubs, systolic murmur Pulses: PRESENT: normal dorsalis pedis pul GI/Abdominal exam: PRESENT: normal bowel sounds, soft. ABSENT: distended, guarding, mass, organolmegaly, rebound, tenderness Rectal exam: PRESENT: deferred Neurological exam: PRESENT: alert, awake, oriented to person, oriented to place, CN II-XII grossly intact. ABSENT: motor sensory deficit Results Laboratory Results: 08/20/19 05:45 11/03/19 05:45 Impressions: Chest X-Ray 08/22/19 00:00 IMPRESSION: NO ACUTE RADIOGRAPHIC FINDING IN THE CHEST. Assessment and Plan - Diagnosis (1) Persaud involving 10-19% of body surface with 10-19% third degree persaud Is this a current diagnosis for this admission?: Yes Plan: S/P Skin grafting at [facility]. (2) Hypertension Qualifiers: Hypertension type: essential hypertension Qualified Code(s): I10 - Essential (primary) hypertension Is this a current diagnosis for this admission?: Yes Plan: Blood pressures well controlled running. Continue amlodipine. (3) S/P split thickness skin graft Is this a current diagnosis for this admission?: Yes Plan: 1 - Time Time Spent with patient: 15-24 minutes
[2019-08-26] MEDS: MELATONIN 3 MG TABLET PO SCH (22:05)
[2019-08-26] MEDS: DOXAZOSIN MESYLATE 2 MG TABLET PO SCH (22:07)
[2019-08-27] MEDS: PANTOPRAZOLE SODIUM 40 MG TABLET.DR PO SCH (05:46)
[2019-08-27] MEDS: RISPERIDONE 1 MG TABLET PO SCH ×2 (05:47→16:07)
[2019-08-27] MEDS: LACTOBACILLUS ACIDOPHILUS 250 MG TAB PO SCH ×2 (10:37→17:36)
[2019-08-27] MEDS: AMLODIPINE BESYLATE 5 MG TABLET PO SCH (10:37)
[2019-08-27] MEDS: ASCORBIC ACID 500 MG TABLET PO SCH (10:37)
[2019-08-27] MEDS: THIAMINE HCL 100 MG TABLET PO SCH (10:37)
[2019-08-27] MEDS: BUSPIRONE HCL 10 MG TABLET PO SCH ×2 (10:38→21:35)
[2019-08-27] MEDS: MULTIVITAMIN ORAL LIQUID 60 ML PO SCH (10:38)
[2019-08-27] MEDS: ENOXAPARIN SODIUM INJ 30 MG/0.3 ML DISP.SYRIN SUBCUT SCH (10:39)
[2019-08-27] MEDS: AMINO AC/PROTEIN HYDR/WHEY PRO 11 GM/45 ML PKT NG SCH ×3 (10:39→17:36)
[2019-08-27] MEDS: FOLIC ACID 1 MG TABLET PO SCH (10:40)
[2019-08-27] MEDS: MUPIROCIN 2% OINTMENT 22 GM TP SCH (10:47)
--- NOTE | 2019-08-27 13:38 | PDOC PROGRESS REPORT ---
Subjective Progress Note for:: 08/27/19 Subjective:: This is a 74-year-old male who was initially admitted at [facility] no acute event overnight. And subsequently transferred to [facility] on 05/15/2019 due to third-degree persaud close to 50% BSA. Patient underwent skin grafting at [facility] and had a long hospital course at the [facility] burn unit. He did improve and was transferred back to [facility] on 08/16/2019. No acute event overnight. Patient continues to deny acute complaints. Denies chest pain or shortness of breath. His skin grafts have already healed. On reassessment of his leg today, the tiny shallow wound on the left anterior leg is actually healing well. Continues to await SNF/rehab placement. Reason For Visit: PERSAUD S/P SKIN GRAFT,MALNUTRITION,HTN Physical Exam Vital Signs: Temp Pulse Resp BP Pulse Ox 97.6 F 96 17 116/51 L 95 08/27/19 07:50 08/27/19 07:50 08/27/19 07:50 08/27/19 07:50 08/27/19 07:50 Intake & Output 08/26/19 08/27/19 08/28/19 06:59 06:59 06:59 Intake Total 1202 1002 Output Total 1425 1725 Balance -223 -723 Weight 130 lb 4.691 oz 126 lb 12.253 oz General appearance: PRESENT: no acute distress, well-developed, well-nourished Head exam: PRESENT: atraumatic, normocephalic Eye exam: PRESENT: conjunctiva pink, EOMI, PERRLA. ABSENT: scleral icterus Ear exam: PRESENT: normal external ear exam Mouth exam: PRESENT: moist, tongue midline Neck exam: ABSENT: carotid bruit, JVD, lymphadenopathy, thyromegaly Respiratory exam: PRESENT: clear to auscultation daniel. ABSENT: rales, rhonchi, wheezes Cardiovascular exam: PRESENT: RRR. ABSENT: diastolic murmur, rubs, systolic murmur Pulses: PRESENT: normal dorsalis pedis pul GI/Abdominal exam: PRESENT: normal bowel sounds, soft. ABSENT: distended, guarding, mass, organolmegaly, rebound, tenderness Rectal exam: PRESENT: deferred Neurological exam: PRESENT: alert, awake, oriented to person, oriented to place, CN II-XII grossly intact. ABSENT: motor sensory deficit Results Laboratory Results: 08/20/19 05:45 08/20/19 05:45 Impressions: Chest X-Ray 08/22/19 00:00 IMPRESSION: NO ACUTE RADIOGRAPHIC FINDING IN THE CHEST. Assessment and Plan - Diagnosis (1) Persaud involving 10-19% of body surface with 10-19% third degree persaud Is this a current diagnosis for this admission?: Yes Plan: S/P Skin grafting at [facility]. (2) Hypertension Qualifiers: Hypertension type: essential hypertension Qualified Code(s): I10 - Essential (primary) hypertension Is this a current diagnosis for this admission?: Yes Plan: Blood pressures well controlled running. Continue amlodipine. (3) S/P split thickness skin graft Is this a current diagnosis for this admission?: Yes - Time Time Spent with patient: 15-24 minutes
[2019-08-27] MEDS ORDERED: TAMSULOSIN HCL 0.4 MG CAP.SR.24H PO ONE (15:45)
[2019-08-27] MEDS: DOXAZOSIN MESYLATE 2 MG TABLET PO SCH (21:35)
[2019-08-27] MEDS: RISPERIDONE 1 MG TABLET PO PRN (21:35)
[2019-08-27] MEDS: MELATONIN 3 MG TABLET PO SCH (21:35)
[2019-08-28] MEDS: PANTOPRAZOLE SODIUM 40 MG TABLET.DR PO SCH (09:05)
[2019-08-28] MEDS: BUSPIRONE HCL 10 MG TABLET PO SCH ×2 (09:06→22:34)
[2019-08-28] MEDS: ASCORBIC ACID 500 MG TABLET PO SCH (09:06)
[2019-08-28] MEDS: LACTOBACILLUS ACIDOPHILUS 250 MG TAB PO SCH ×2 (09:06→17:12)
[2019-08-28] MEDS: ENOXAPARIN SODIUM INJ 30 MG/0.3 ML DISP.SYRIN SUBCUT SCH (09:07)
[2019-08-28] MEDS: THIAMINE HCL 100 MG TABLET PO SCH (09:07)
[2019-08-28] MEDS: AMLODIPINE BESYLATE 5 MG TABLET PO SCH (09:07)
[2019-08-28] MEDS: MUPIROCIN 2% OINTMENT 22 GM TP SCH (09:20)
[2019-08-28] MEDS: FOLIC ACID 1 MG TABLET PO SCH (09:20)
[2019-08-28] MEDS: MULTIVITAMIN ORAL LIQUID 60 ML PO SCH (10:00)
[2019-08-28] MEDS: RISPERIDONE 1 MG TABLET PO SCH ×2 (10:04→15:12)
[2019-08-28] MEDS: AMINO AC/PROTEIN HYDR/WHEY PRO 11 GM/45 ML PKT NG SCH ×3 (12:44→17:12)
--- NOTE | 2019-08-28 13:08 | PDOC PROGRESS REPORT ---
Subjective Progress Note for:: 08/28/19 Subjective:: This is a 74-year-old male who was initially admitted at [facility] no acute event overnight. And subsequently [facility]2019 due to third-degree persaud close to 50% BSA. Patient underwent skin grafting at [facility] and had a long hospital course at the [facility] burn unit. He did improve and was transferred back to [facility] on 08/16/2019. 08/27: Patient continues to deny acute complaints. Denies chest pain or shortness of breath. His skin grafts have already healed. On reassessment of his leg today, the tiny shallow wound on the left anterior leg is actually healing well. Continues to await SNF/rehab placement. 08/28: No acute event overnight. Denies acute complaints. at bedside is updated about plan of care. Encouraged to consider other SNFs for placement. Reason For Visit: PERSAUD S/P SKIN GRAFT,MALNUTRITION,HTN Physical Exam Vital Signs: Temp Pulse Resp BP Pulse Ox 97.5 F 85 17 132/47 H 100 08/28/19 07:38 08/28/19 07:38 08/28/19 07:38 08/28/19 07:38 08/28/19 07:38 Intake & Output 08/27/19 08/28/19 08/29/19 06:59 06:59 06:59 Intake Total 1002 360 Output Total 1725 1075 Balance -723 -715 Weight 126 lb 12.253 oz 124 lb 12.506 oz General appearance: PRESENT: no acute distress, well-developed, well-nourished Head exam: PRESENT: atraumatic, normocephalic Eye exam: PRESENT: conjunctiva pink, EOMI, PERRLA. ABSENT: scleral icterus Ear exam: PRESENT: normal external ear exam Mouth exam: PRESENT: moist, tongue midline Neck exam: ABSENT: carotid bruit, JVD, lymphadenopathy, thyromegaly Respiratory exam: PRESENT: clear to auscultation daniel. ABSENT: rales, rhonchi, wheezes Cardiovascular exam: PRESENT: RRR. ABSENT: diastolic murmur, rubs, systolic murmur Pulses: PRESENT: normal dorsalis pedis pul GI/Abdominal exam: PRESENT: normal bowel sounds, soft. ABSENT: distended, guarding, mass, organolmegaly, rebound, tenderness Rectal exam: PRESENT: deferred Neurological exam: PRESENT: alert, awake, oriented to person, oriented to place Results Laboratory Results: 08/20/19 05:45 08/20/19 05:45 Impressions: Chest X-Ray 08/22/19 00:00 IMPRESSION: NO ACUTE RADIOGRAPHIC FINDING IN THE CHEST. Assessment and Plan - Diagnosis (1) Persaud involving 10-19% of body surface with 10-19% third degree persaud Is this a current diagnosis for this admission?: Yes Plan: S/P [facility]. (2) Hypertension Qualifiers: Hypertension type: essential hypertension Qualified Code(s): I10 - Essential (primary) hypertension Is this a current diagnosis for this admission?: Yes Plan: Blood pressures well controlled. Continue amlodipine. (3) S/P split thickness skin graft Is this a current diagnosis for this admission?: Yes (4) Urinary retention Is this a current diagnosis for this admission?: Yes Plan: Indwelling Kennedy was placed at at [facility] as he failed multiple attempts bladder retraining. Attempted to remove Kennedy yesterday but patient had recurrence of retention. Will set up patient with outpatient urology for further urodynamic testing. - Time Time Spent with patient: 15-24 minutes
[2019-08-28] MEDS: DOXAZOSIN MESYLATE 2 MG TABLET PO SCH (22:33)
[2019-08-28] MEDS: MELATONIN 3 MG TABLET PO SCH (22:34)
[2019-08-29] MEDS: PANTOPRAZOLE SODIUM 40 MG TABLET.DR PO SCH (06:04)
[2019-08-29] MEDS: RISPERIDONE 1 MG TABLET PO SCH ×2 (06:04→15:05)
[2019-08-29] MEDS: THIAMINE HCL 100 MG TABLET PO SCH (09:33)
[2019-08-29] MEDS: LACTOBACILLUS ACIDOPHILUS 250 MG TAB PO SCH ×2 (09:34→18:01)
[2019-08-29] MEDS: ASCORBIC ACID 500 MG TABLET PO SCH (09:34)
[2019-08-29] MEDS: BUSPIRONE HCL 10 MG TABLET PO SCH ×2 (09:34→22:58)
[2019-08-29] MEDS: AMLODIPINE BESYLATE 5 MG TABLET PO SCH (09:34)
[2019-08-29] MEDS: FOLIC ACID 1 MG TABLET PO SCH (09:34)
[2019-08-29] MEDS: MUPIROCIN 2% OINTMENT 22 GM TP SCH (09:35)
[2019-08-29] MEDS: ENOXAPARIN SODIUM INJ 30 MG/0.3 ML DISP.SYRIN SUBCUT SCH (09:35)
[2019-08-29] MEDS: AMINO AC/PROTEIN HYDR/WHEY PRO 11 GM/45 ML PKT NG SCH ×3 (09:39→18:01)
[2019-08-29] MEDS: MULTIVITAMIN ORAL LIQUID 60 ML PO SCH (09:40)
--- NOTE | 2019-08-29 09:51 | PDOC PROGRESS REPORT ---
Subjective Progress Note for:: 08/29/19 Reason For Visit: PERSAUD S/P SKIN GRAFT,MALNUTRITION,HTN 08/29/2019 Discharge planning is currently working on placement. Patient appears medically stable for discharge once placement is secured Patient was admitted for ongoing wound care as well as malnutrition, and physical therapy Physical Exam Vital Signs: Temp Pulse Resp BP Pulse Ox 97.8 F 86 18 144/49 H 95 08/29/19 08:00 08/29/19 08:00 08/29/19 08:00 08/29/19 08:00 08/29/19 08:00 Intake & Output 08/28/19 08/29/19 08/30/19 06:59 06:59 06:59 Intake Total 360 596 Output Total 1075 1725 Balance -715 -1129 Weight 56.6 kg 57.5 kg General appearance: PRESENT: no acute distress, other - Patient is resting comfortably in bed but arouses easily Respiratory exam: PRESENT: clear to auscultation daniel. ABSENT: rales, rhonchi, wheezes Cardiovascular exam: PRESENT: RRR. ABSENT: diastolic murmur, rubs, systolic murmur Neurological exam: PRESENT: alert, awake, oriented to person, oriented to place, oriented to time, oriented to situation, CN II-XII grossly intact. ABSENT: motor sensory deficit Psychiatric exam: PRESENT: appropriate affect, normal mood. ABSENT: homicidal ideation, suicidal ideation Results Laboratory Results: 08/20/19 05:45 08/20/19 05:45 Impressions: Chest X-Ray 08/22/19 00:00 IMPRESSION: NO ACUTE RADIOGRAPHIC FINDING IN THE CHEST. Assessment and Plan - Diagnosis (1) Caloric malnutrition Is this a current diagnosis for this admission?: Yes (2) Dysphagia Qualifiers: Dysphagia type: unspecified Qualified Code(s): R13.10 - Dysphagia, unspecified Is this a current diagnosis for this admission?: Yes (3) Non-healing wound of lower extremity Qualifiers: Encounter type: initial encounter Laterality: left Qualified Code(s): S81.802A - Unspecified open wound, left lower leg, initial encounter Is this a current diagnosis for this admission?: Yes (4) PEG (percutaneous endoscopic gastrostomy) status Is this a current diagnosis for this admission?: Yes (5) S/P split thickness skin graft Is this a current diagnosis for this admission?: Yes (6) Urinary retention Is this a current diagnosis for this admission?: Yes (7) Weakness Is this a current diagnosis for this admission?: Yes (8) ETOH abuse Is this a current diagnosis for this admission?: Yes - Plan Summary Summary: 08/29/2019 Discharge planning is working on placement. Patient is medically stable for discharge Admission patient's weight was 67.9 kg today it is 57.5 kg. Patient has been seen by dietary they have made recommendations with 900 kcal, 458 mL's of free fluid and 41 g of protein. Patient is currently on Prosource NG tube 3 times daily. Also lactobacillus acidophilus 500 mg twice daily, thiamine and multivitamins We will check another chemistry panel today Patient also continues to work with physical therapy and will need physical therapy at time of discharge - Time Time Spent with patient: 35 or more minutes
[2019-08-29 11:22] LABS: ALBUMIN 3.7 g/dL (3.5-5.0); ALKALINE PHOSPHATASE 114 U/L (38-126); ANION GAP 10 (5-19); ASPARTATE AMINO TRANSFERASE 25 U/L (17-59); BILIRUBIN,DIRECT 0.1 mg/dL (0.0-0.4); BILIRUBIN,TOTAL 0.2 mg/dL (0.2-1.3); BLOOD UREA NITROGEN 34 mg/dL (7-20); CALCIUM 10.1 mg/dL (8.4-10.2); CARBON DIOXIDE 28 mmol/L (22-30); CHLORIDE 99 mmol/L (98-107); GLUCOSE 102 mg/dL (75-110); POTASSIUM 4.3 mmol/L (3.6-5.0); TOTAL PROTEIN 7.3 g/dL (6.3-8.2)
[2019-08-29] MEDS: MELATONIN 3 MG TABLET PO SCH (22:58)
[2019-08-29] MEDS: DOXAZOSIN MESYLATE 2 MG TABLET PO SCH (23:02)
[2019-08-30] MEDS: RISPERIDONE 1 MG TABLET PO SCH ×2 (06:00→16:54)
[2019-08-30] MEDS: PANTOPRAZOLE SODIUM 40 MG TABLET.DR PO SCH (06:00)
--- NOTE | 2019-08-30 09:40 | RADIOLOGY REPORT (SQ) ---
EXAM DESCRIPTION: CT HEAD WITHOUT COMPLETED DATE/TIME: 08/30/2019 9:26 am REASON FOR STUDY: visual changes, headache COMPARISON: 05/13/2019 TECHNIQUE: Axial images acquired through the brain without intravenous contrast. Images reviewed wi th bone, brain and subdural windows. Additional sagittal and coronal reconstructions were generated. Images stored on PACS. All CT scanners at this facility use dose modulation, iterative reconstruction, and/or weight based d osing when appropriate to reduce radiation dose to as low as reasonably achievable (ALARA). [facility]: Dose Right [facility]: CareDose [facility]: Dose Right [facility]: Teradose 4D [facility]: inkSIG Digital RADIATION DOSE: CT Rad equipment meets quality standard of care and radiation dose reduction techniq ues were employed. CTDIvol: 48.6 mGy. DLP: 930 mGy-cm. mGy. LIMITATIONS: None. FINDINGS: VENTRICLES: Prominent. CEREBRUM: No masses. No hemorrhage. No midline shift. Areas of low density in the white matter mos t likely due to chronic micro-vascular ischemic change. No evidence for acute infarction. CEREBELLUM: No masses. No hemorrhage. No alteration of density. No evidence for acute infarction. EXTRAAXIAL SPACES: Mild age-related involutional change. No fluid collections. No masses. ORBITS AND GLOBE: No intra- or extraconal masses. Normal contour of globe without masses. CALVARIUM: No fracture. PARANASAL SINUSES: No fluid or mucosal thickening. SOFT TISSUES: No mass or hematoma. OTHER: No other significant finding. IMPRESSION: MILD CHRONIC CHANGES OF ATROPHY AND MICROVASCULAR ISCHEMIA. NO ACUTE PROCESS. EVIDENCE OF ACUTE STROKE: NO. COMMENT: This report was called to PAXTON GONZALEZ PA-C at09:32 on 08/30/2019. I spoke with the patient' s nurse to related the information to the ordering attending. TECHNICAL DOCUMENTATION: JOB ID: [id number] Quality ID # [id number]: Final reports with documentation of one or more dose reduction techniques (e.g., Au tomated exposure control, adjustment of the mA and/or kV according to patient size, use of iterative reconstruction technique) 2010 [employer]- All Rights Reserved Reading location - IP/workstation name: [email or web address]
--- NOTE | 2019-08-30 10:36 | PDOC PROGRESS REPORT ---
Subjective Progress Note for:: 08/30/19 Reason For Visit: PERSAUD S/P SKIN GRAFT,MALNUTRITION,HTN 08/30/2019 Patient was admitted for placement issues as well as dementia Physical Exam Vital Signs: Temp Pulse Resp BP Pulse Ox 97.6 F 89 17 124/52 L 93 08/30/19 08:00 08/30/19 08:00 08/30/19 08:00 08/30/19 08:00 08/30/19 08:00 Intake & Output 08/29/19 08/30/19 08/31/19 06:59 06:59 06:59 Intake Total 596 1378 Output Total 1725 820 Balance -1129 558 Weight 57.5 kg 57.5 kg General appearance: PRESENT: no acute distress, other - She was complaining of a right-sided headache and left-sided visual changes to the nurse Respiratory exam: PRESENT: clear to auscultation daniel. ABSENT: rales, rhonchi, wheezes Cardiovascular exam: PRESENT: RRR. ABSENT: diastolic murmur, rubs, systolic murmur Neurological exam: PRESENT: other - No obvious focal deficit Psychiatric exam: PRESENT: appropriate affect, normal mood. ABSENT: homicidal ideation, suicidal ideation Results Laboratory Results: 08/20/19 05:45 08/29/19 10:31 08/29/19 10:31 Sodium 137.0 Potassium 4.3 Chloride 99 Carbon Dioxide 28 Anion Gap 10 BUN 34 H Creatinine 0.79 Est GFR ( Amer) > 60 Glucose 102 Calcium 10.1 Total Bilirubin 0.2 AST 25 Alkaline Phosphatase 114 Total Protein 7.3 Albumin 3.7 Impressions: Chest X-Ray 08/22/19 00:00 IMPRESSION: NO ACUTE RADIOGRAPHIC FINDING IN THE CHEST. Head CT 08/30/19 08:59 IMPRESSION: MILD CHRONIC CHANGES OF ATROPHY AND MICROVASCULAR ISCHEMIA. NO ACUTE PROCESS. EVIDENCE OF ACUTE STROKE: NO. Assessment and Plan - Diagnosis (1) Caloric malnutrition Is this a current diagnosis for this admission?: Yes (2) Dysphagia Qualifiers: Dysphagia type: unspecified Qualified Code(s): R13.10 - Dysphagia, unspecified Is this a current diagnosis for this admission?: Yes (3) Non-healing wound of lower extremity Qualifiers: Encounter type: initial encounter Laterality: left Qualified Code(s): S81.802A - Unspecified open wound, left lower leg, initial encounter Is this a current diagnosis for this admission?: Yes (4) PEG (percutaneous endoscopic gastrostomy) status Is this a current diagnosis for this admission?: Yes (5) S/P split thickness skin graft Is this a current diagnosis for this admission?: Yes (6) Urinary retention Is this a current diagnosis for this admission?: Yes (7) Weakness Is this a current diagnosis for this admission?: Yes (8) ETOH abuse Is this a current diagnosis for this admission?: Yes - Plan Summary Summary: 08/29/2019 Discharge planning is working on placement. Patient is medically stable for discharge Admission patient's weight was 67.9 kg today it is 57.5 kg. Patient has been seen by dietary they have made recommendations with 900 kcal, 458 mL's of free fluid and 41 g of protein. Patient is currently on Prosource NG tube 3 times daily. Also lactobacillus acidophilus 500 mg twice daily, thiamine and multivitamins We will check another chemistry panel today Patient also continues to work with physical therapy and will need physical therapy at time of discharge 08/30/2019 Still waiting for a bed at one the local halfway facilities Patient had a stat CT brain scan today because of his neurologic complaints. This showed no acute findings only chronic changes Patient's vital signs are stable, he is medically stable for discharge once healed nursing facility excepting - Time Time Spent with patient: 15-24 minutes
[2019-08-30] MEDS: FOLIC ACID 1 MG TABLET PO SCH (11:08)
[2019-08-30] MEDS: THIAMINE HCL 100 MG TABLET PO SCH (11:08)
[2019-08-30] MEDS: LACTOBACILLUS ACIDOPHILUS 250 MG TAB PO SCH ×2 (11:08→18:02)
[2019-08-30] MEDS: ASCORBIC ACID 500 MG TABLET PO SCH (11:08)
[2019-08-30] MEDS: BUSPIRONE HCL 10 MG TABLET PO SCH ×2 (11:08→21:29)
[2019-08-30] MEDS: AMLODIPINE BESYLATE 5 MG TABLET PO SCH (11:08)
[2019-08-30] MEDS: MUPIROCIN 2% OINTMENT 22 GM TP SCH (11:09)
[2019-08-30] MEDS: AMINO AC/PROTEIN HYDR/WHEY PRO 11 GM/45 ML PKT NG SCH ×3 (11:09→18:02)
[2019-08-30] MEDS: MULTIVITAMIN ORAL LIQUID 60 ML PO SCH (11:09)
[2019-08-30] MEDS: ENOXAPARIN SODIUM INJ 30 MG/0.3 ML DISP.SYRIN SUBCUT SCH (11:09)
[2019-08-30] MEDS: MELATONIN 3 MG TABLET PO SCH (21:29)
[2019-08-30] MEDS: RISPERIDONE 1 MG TABLET PO PRN (21:30)
[2019-08-30] MEDS: DOXAZOSIN MESYLATE 2 MG TABLET PO SCH (21:32)
[2019-08-31] MEDS: ENOXAPARIN SODIUM INJ 30 MG/0.3 ML DISP.SYRIN SUBCUT SCH (09:07)
[2019-08-31] MEDS: LACTOBACILLUS ACIDOPHILUS 250 MG TAB PO SCH ×2 (09:08→17:06)
[2019-08-31] MEDS: BUSPIRONE HCL 10 MG TABLET PO SCH ×2 (09:08→21:26)
[2019-08-31] MEDS: ASCORBIC ACID 500 MG TABLET PO SCH (09:11)
[2019-08-31] MEDS: AMLODIPINE BESYLATE 5 MG TABLET PO SCH (09:12)
[2019-08-31] MEDS: AMINO AC/PROTEIN HYDR/WHEY PRO 11 GM/45 ML PKT NG SCH ×3 (09:12→17:07)
[2019-08-31] MEDS: THIAMINE HCL 100 MG TABLET PO SCH (09:12)
[2019-08-31] MEDS: RISPERIDONE 1 MG TABLET PO SCH ×2 (09:13→17:07)
[2019-08-31] MEDS: PANTOPRAZOLE SODIUM 40 MG TABLET.DR PO SCH (09:14)
[2019-08-31] MEDS: FOLIC ACID 1 MG TABLET PO SCH (09:32)
--- NOTE | 2019-08-31 11:55 | PDOC PROGRESS REPORT ---
Subjective Progress Note for:: 08/31/19 Reason For Visit: PERSAUD S/P SKIN GRAFT,MALNUTRITION,HTN 08/31/2019 She was admitted for dementia, caloric malnutrition, dysphagia, nonhealing wound of the lower extremity, PEG tube feeding ,urinary retention, weakness and alcohol abuse Patient is currently waiting on placement which may be several days Physical Exam Vital Signs: Temp Pulse Resp BP Pulse Ox 98.1 F 87 20 121/54 L 95 08/31/19 07:56 08/31/19 07:56 08/31/19 07:56 08/31/19 07:56 08/31/19 07:56 Intake & Output 08/30/19 08/31/19 09/01/19 06:59 06:59 06:59 Intake Total 1378 830 Output Total 820 1900 Balance 558 -1070 Weight 57.5 kg 58.2 kg General appearance: PRESENT: no acute distress, other - He is difficult to understand his speech Respiratory exam: PRESENT: clear to auscultation daniel. ABSENT: rales, rhonchi, wheezes Cardiovascular exam: PRESENT: RRR. ABSENT: diastolic murmur, rubs, systolic murmur Neurological exam: PRESENT: alert, awake, oriented to person, oriented to place, oriented to time, oriented to situation, CN II-XII grossly intact. ABSENT: motor sensory deficit Psychiatric exam: PRESENT: flat affect Results Laboratory Results: 08/20/19 05:45 08/29/19 10:31 Impressions: Chest X-Ray 08/22/19 00:00 IMPRESSION: NO ACUTE RADIOGRAPHIC FINDING IN THE CHEST. Head CT 08/30/19 08:59 IMPRESSION: MILD CHRONIC CHANGES OF ATROPHY AND MICROVASCULAR ISCHEMIA. NO AC VICTORINA PROCESS. EVIDENCE OF ACUTE STROKE: NO. Assessment and Plan - Diagnosis (1) Caloric malnutrition Is this a current diagnosis for this admission?: Yes (2) Dysphagia Qualifiers: Dysphagia type: unspecified Qualified Code(s): R13.10 - Dysphagia, unspecified Is this a current diagnosis for this admission?: Yes (3) Non-healing wound of lower extremity Qualifiers: Encounter type: initial encounter Laterality: left Qualified Code(s): S81.802A - Unspecified open wound, left lower leg, initial encounter Is this a current diagnosis for this admission?: Yes (4) PEG (percutaneous endoscopic gastrostomy) status Is this a current diagnosis for this admission?: Yes (5) S/P split thickness skin graft Is this a current diagnosis for this admission?: Yes (6) Urinary retention Is this a current diagnosis for this admission?: Yes (7) Weakness Is this a current diagnosis for this admission?: Yes (8) ETOH abuse Is this a current diagnosis for this admission?: Yes - Plan Summary Summary: 08/29/2019 Discharge planning is working on placement. Patient is medically stable for discharge Admission patient's weight was 67.9 kg today it is 57.5 kg. Patient has been seen by dietary they have made recommendations with 900 kcal, 458 mL's of free fluid and 41 g of protein. Patient is currently on Prosource NG tube 3 times daily. Also lactobacillus acidophilus 500 mg twice daily, thiamine and multivitamins We will check another chemistry panel today Patient also continues to work with physical therapy and will need physical therapy at time of discharge 08/30/2019 Still waiting for a bed at one of the local detention facilities Patient had a stat CT brain scan today because of his neurologic complaints. This showed no acute findings only chronic changes Patient's vital signs are stable, he is medically stable for discharge once detention facility excepting 08/31/2019 Vital signs are stable, all of his lab work is stable Physical therapy recommends need working 1 time per day 2 to 5 days/week Hopefully detention facility will be possible in the next couple of days - Time Time Spent with patient: 15-24 minutes
[2019-08-31] MEDS: MUPIROCIN 2% OINTMENT 22 GM TP SCH (12:47)
[2019-08-31] MEDS: MULTIVITAMIN ORAL LIQUID 60 ML PO SCH (14:21)
[2019-08-31] MEDS: RISPERIDONE 1 MG TABLET PO PRN (21:26)
[2019-08-31] MEDS: DOXAZOSIN MESYLATE 2 MG TABLET PO SCH (21:26)
[2019-08-31] MEDS: MELATONIN 3 MG TABLET PO SCH (21:26)
[2019-09-01] MEDS: PANTOPRAZOLE SODIUM 40 MG TABLET.DR PO SCH (08:52)
[2019-09-01] MEDS: RISPERIDONE 1 MG TABLET PO SCH ×2 (08:53→15:12)
[2019-09-01] MEDS: ASCORBIC ACID 500 MG TABLET PO SCH (10:33)
[2019-09-01] MEDS: AMLODIPINE BESYLATE 5 MG TABLET PO SCH (10:33)
[2019-09-01] MEDS: LACTOBACILLUS ACIDOPHILUS 250 MG TAB PO SCH ×2 (10:33→17:49)
[2019-09-01] MEDS: MUPIROCIN 2% OINTMENT 22 GM TP SCH (10:33)
[2019-09-01] MEDS: THIAMINE HCL 100 MG TABLET PO SCH (10:33)
[2019-09-01] MEDS: FOLIC ACID 1 MG TABLET PO SCH (10:33)
[2019-09-01] MEDS: ENOXAPARIN SODIUM INJ 30 MG/0.3 ML DISP.SYRIN SUBCUT SCH (10:34)
[2019-09-01] MEDS: BUSPIRONE HCL 10 MG TABLET PO SCH ×2 (10:34→21:19)
[2019-09-01] MEDS: MULTIVITAMIN ORAL LIQUID 60 ML PO SCH (10:34)
[2019-09-01] MEDS: AMINO AC/PROTEIN HYDR/WHEY PRO 11 GM/45 ML PKT NG SCH ×3 (10:34→17:49)
--- NOTE | 2019-09-01 12:19 | PDOC PROGRESS REPORT ---
Subjective Progress Note for:: 09/01/19 Reason For Visit: PERSAUD S/P SKIN GRAFT,MALNUTRITION,HTN 09/01/2019 Still waiting on bed placement. Patient has been denied at several locations, hope to find someplace next week Discharge planning is working daily to try to secure placement Physical Exam Vital Signs: Temp Pulse Resp BP Pulse Ox 98.2 F 92 17 100/45 L 94 08/31/19 23:39 08/31/19 23:39 08/31/19 23:39 08/31/19 23:48 08/31/19 23:39 Intake & Output 08/31/19 09/01/19 09/02/19 06:59 06:59 06:59 Intake Total 830 1265 Output Total 1900 1470 Balance -1070 -205 Weight 58.2 kg 60 kg General appearance: PRESENT: no acute distress, other - Basically unchanged Respiratory exam: PRESENT: clear to auscultation daniel. ABSENT: rales, rhonchi, wheezes Cardiovascular exam: PRESENT: RRR. ABSENT: diastolic murmur, rubs, systolic murmur Neurological exam: PRESENT: alert, awake, oriented to person, oriented to place, oriented to time, oriented to situation, CN II-XII grossly intact. ABSENT: motor sensory deficit Psychiatric exam: PRESENT: flat affect Results Laboratory Results: 08/20/19 05:45 08/29/19 10:31 Impressions: Chest X-Ray 08/22/19 00:00 IMPRESSION: NO ACUTE RADIOGRAPHIC FINDING IN THE CHEST. Head CT 08/30/19 08:59 IMPRESSION: MILD CHRONIC CHANGES OF ATROPHY AND MICROVASCULAR ISCHEMIA. NO ACUTE PROCESS. EVIDENCE OF ACUTE STROKE: NO. Assessment and Plan - Diagnosis (1) Caloric malnutrition Is this a current diagnosis for this admission?: Yes (2) Dysphagia Qualifiers: Dysphagia type: unspecified Qualified Code(s): R13.10 - Dysphagia, unspecified Is this a current diagnosis for this admission?: Yes (3) Non-healing wound of lower extremity Qualifiers: Encounter type: initial encounter Laterality: left Qualified Code(s): S81.802A - Unspecified open wound, left lower leg, initial encounter Is this a current diagnosis for this admission?: Yes (4) PEG (percutaneous endoscopic gastrostomy) status Is this a current diagnosis for this admission?: Yes (5) S/P split thickness skin graft Is this a current diagnosis for this admission?: Yes (6) Urinary retention Is this a current diagnosis for this admission?: Yes (7) Weakness Is this a current diagnosis for this admission?: Yes (8) ETOH abuse Is this a current diagnosis for this admission?: Yes - Plan Summary Summary: 08/29/2019 Discharge planning is working on placement. Patient is medically stable for discharge Admission patient's weight was 67.9 kg today it is 57.5 kg. Patient has been seen by dietary they have made recommendations with 900 kcal, 458 mL's of free fluid and 41 g of protein. Patient is currently on Prosource NG tube 3 times daily. Also lactobacillus acidophilus 500 mg twice daily, thiamine and multivitamins We will check another chemistry panel today Patient also continues to work with physical therapy and will need physical therapy at time of discharge 08/30/2019 Still waiting for a bed at one of the local [place] [facility] facilities Patient had a stat CT brain scan today because of his neurologic complaints. This showed no acute findings only chronic changes Patient's vital signs are stable, he is medically stable for discharge once [place] [facility] excepting 08/31/2019 Vital signs are stable, all of his lab work is stable Physical therapy recommends need working 1 time per day 2 to 5 days/week Hopefully [place] facility will be possible in the next couple of days 09/01/2019 No significant changes Patient was transferred here back from [facility] [place] August 16. Patient was originally admitted here for wound care as well as attritional needs. Patient has now stabilized and waiting [place] [facility] facility due to generalized weakness, failure to thrive with malnutrition, hypertension, history of alcohol abuse, dysphagia Patient is medically stable for transfer - Time Time Spent with patient: 15-24 minutes
[2019-09-01] MEDS: MELATONIN 3 MG TABLET PO SCH (21:19)
[2019-09-02] MEDS: DOXAZOSIN MESYLATE 2 MG TABLET PO SCH ×2 (00:55→21:33)
[2019-09-02] MEDS: RISPERIDONE 1 MG TABLET PO SCH ×2 (05:11→15:34)
[2019-09-02] MEDS: PANTOPRAZOLE SODIUM 40 MG TABLET.DR PO SCH (05:11)
[2019-09-02] MEDS: AMLODIPINE BESYLATE 5 MG TABLET PO SCH (10:39)
[2019-09-02] MEDS: FOLIC ACID 1 MG TABLET PO SCH (10:39)
[2019-09-02] MEDS: ASCORBIC ACID 500 MG TABLET PO SCH (10:40)
[2019-09-02] MEDS: THIAMINE HCL 100 MG TABLET PO SCH (10:40)
[2019-09-02] MEDS: LACTOBACILLUS ACIDOPHILUS 250 MG TAB PO SCH ×2 (10:40→17:34)
[2019-09-02] MEDS: BUSPIRONE HCL 10 MG TABLET PO SCH ×2 (10:40→21:33)
[2019-09-02] MEDS: MULTIVITAMIN ORAL LIQUID 60 ML PO SCH (10:41)
[2019-09-02] MEDS: ENOXAPARIN SODIUM INJ 30 MG/0.3 ML DISP.SYRIN SUBCUT SCH (10:41)
[2019-09-02] MEDS: AMINO AC/PROTEIN HYDR/WHEY PRO 11 GM/45 ML PKT NG SCH ×3 (10:41→17:34)
[2019-09-02] MEDS: MUPIROCIN 2% OINTMENT 22 GM TP SCH (10:51)
--- NOTE | 2019-09-02 11:01 | PDOC PROGRESS REPORT ---
Subjective Progress Note for:: 09/02/19 Reason For Visit: PERSAUD S/P SKIN GRAFT,MALNUTRITION,HTN 09/02/2019 Awaiting bed placement She does not appear to be a good rehab candidate with physical therapy due to weakness and unwillingness to cooperate Physical Exam Vital Signs: Temp Pulse Resp BP Pulse Ox 97.6 F 82 16 130/44 H 90 L 09/02/19 07:39 09/02/19 07:39 09/02/19 07:39 09/02/19 07:39 09/02/19 07:39 Intake & Output 09/01/19 09/02/19 09/03/19 06:59 06:59 06:59 Intake Total 1265 1190 Output Total 1470 2460 Balance -205 -1270 Weight 60 kg 60.2 kg General appearance: PRESENT: no acute distress Respiratory exam: PRESENT: clear to auscultation daniel. ABSENT: rales, rhonchi, wheezes Cardiovascular exam: PRESENT: RRR. ABSENT: diastolic murmur, rubs, systolic murmur Neurological exam: PRESENT: altered, CN II-XII grossly intact, other - Patient difficult to understand. ABSENT: motor sensory deficit Psychiatric exam: PRESENT: flat affect Results Laboratory Results: 08/20/19 05:45 08/29/19 10:31 Impressions: Chest X-Ray 08/22/19 00:00 IMPRESSION: NO ACUTE RADIOGRAPHIC FINDING IN THE CHEST. Head CT 08/30/19 08:59 IMPRESSION: MILD CHRONIC CHANGES OF ATROPHY AND MICROVASCULAR ISCHEMIA. NO ACUTE PROCESS. EVIDENCE OF ACUTE STROKE: NO. Assessment and Plan - Diagnosis (1) Caloric malnutrition Is this a current diagnosis for this admission?: Yes (2) Dysphagia Qualifiers: Dysphagia type: unspecified Qualified Code(s): R13.10 - Dysphagia, unspecified Is this a current diagnosis for this admission?: Yes (3) Non-healing wound of lower extremity Qualifiers: Encounter type: initial encounter Laterality: left Qualified Code(s): S81.802A - Unspecified open wound, left lower leg, initial encounter Is this a current diagnosis for this admission?: Yes (4) PEG (percutaneous endoscopic gastrostomy) status Is this a current diagnosis for this admission?: Yes (5) S/P split thickness skin graft Is this a current diagnosis for this admission?: Yes (6) Urinary retention Is this a current diagnosis for this admission?: Yes (7) Weakness Is this a current diagnosis for this admission?: Yes (8) ETOH abuse Is this a current diagnosis for this admission?: Yes - Plan Summary Summary: 08/29/2019 Discharge planning is working on placement. Patient is medically stable for discharge Admission patient's weight was 67.9 kg today it is 57.5 kg. Patient has been seen by dietary they have made recommendations with 900 kcal, 458 mL's of free fluid and 41 g of protein. Patient is currently on Prosource NG tube 3 times daily. Also lactobacillus acidophilus 500 mg twice daily, thiamine and multivitamins We will check another chemistry panel today Patient also continues to work with physical therapy and will need physical th erapy at time of discharge 08/30/2019 Still waiting for a bed at one of the local retirement facilities Patient had a stat CT brain scan today because of his neurologic complaints. This showed no acute findings only chronic changes Patient's vital signs are stable, he is medically stable for discharge once retirement facility excepting 08/31/2019 Vital signs are stable, all of his lab work is stable Physical therapy recommends need working 1 time per day 2 to 5 days/week Hopefully retirement facility will be possible in the next couple of days 09/01/2019 No significant changes Patient was transferred here back from [facility] [place] August 16. Patient was originally admitted here for wound care as well as attritional needs. Patient has now stabilized and waiting retirement facility due to generalized weakness, failure to thrive with malnutrition, hypertension, history of alcohol abuse, dysphagia Patient is medically stable for transfer 09/02/2019 Will increase nightly tube feedings per recommendation of dietary, 5 mL's nightly up to total of 75 mL's Waiting for retirement facility basement Patient is not a good rehab candidate at this time due to weakness and unwillingness to cooperate - Time Time Spent with patient: 15-24 minutes
[2019-09-02] MEDS: MELATONIN 3 MG TABLET PO SCH (21:33)
[2019-09-03] MEDS: PANTOPRAZOLE SODIUM 40 MG TABLET.DR PO SCH (05:12)
[2019-09-03] MEDS: RISPERIDONE 1 MG TABLET PO SCH ×2 (05:12→15:35)
[2019-09-03 08:57] LABS: ABSOLUTE EOSINOPHILS # (AUTO) 0.5 10^3/uL (0.0-0.6); ABSOLUTE LYMPHOCYTES (AUTO) 2.6 10^3/uL (0.5-4.7); ABSOLUTE MONOCYTES (AUTO) 0.5 10^3/uL (0.1-1.4); ABSOLUTE NEUT (AUTO) 3.7 10^3/uL (1.7-8.2); BASOPHILS % (AUTO) 0.6 % (0-2); EOSINOPHILS % (AUTO) 6.4 % (0-6); HEMATOCRIT 31.6 % (37.9-51.0); HEMOGLOBIN 10.8 g/dL (13.5-17.0); LYMPHOCYTES % (AUTO) 35.5 % (13-45); MEAN CORPUSCULAR HEMOGLOBIN 31.1 pg (27.0-33.4); MEAN CORPUSCULAR HGB CONC 34.1 g/dL (32.0-36.0); MEAN CORPUSCULAR VOLUME 91 fl (80-97); MONOCYTES % (AUTO) 6.8 % (3-13); PLATELET COUNT 236 10^3/uL (150-450); RED BLOOD COUNT 3.46 10^6/uL (4.35-5.55); RED CELL DISTRIBUTION WIDTH 15.3 % (11.5-14.0); SEGMENTED NEUTROPHILS % (AUTO) 50.7 % (42-78); TOTAL CELLS COUNTED % (AUTO) 100 %; WHITE BLOOD COUNT 7.2 10^3/uL (4.0-10.5)
[2019-09-03 09:14] LABS: ANION GAP 10 (5-19); BLOOD UREA NITROGEN 45 mg/dL (7-20); CALCIUM 10.3 mg/dL (8.4-10.2); CARBON DIOXIDE 30 mmol/L (22-30); CHLORIDE 101 mmol/L (98-107); GLUCOSE 101 mg/dL (75-110); POTASSIUM 4.6 mmol/L (3.6-5.0)
[2019-09-03] MEDS: ENOXAPARIN SODIUM INJ 30 MG/0.3 ML DISP.SYRIN SUBCUT SCH (10:24)
[2019-09-03] MEDS: LACTOBACILLUS ACIDOPHILUS 250 MG TAB PO SCH ×2 (10:24→17:57)
[2019-09-03] MEDS: ASCORBIC ACID 500 MG TABLET PO SCH (10:25)
[2019-09-03] MEDS: BUSPIRONE HCL 10 MG TABLET PO SCH ×2 (10:25→21:46)
[2019-09-03] MEDS: THIAMINE HCL 100 MG TABLET PO SCH (10:25)
[2019-09-03] MEDS: AMLODIPINE BESYLATE 5 MG TABLET PO SCH (10:25)
[2019-09-03] MEDS: FOLIC ACID 1 MG TABLET PO SCH (10:25)
[2019-09-03] MEDS: MULTIVITAMIN ORAL LIQUID 60 ML PO SCH (10:25)
[2019-09-03] MEDS: AMINO AC/PROTEIN HYDR/WHEY PRO 11 GM/45 ML PKT NG SCH ×3 (10:26→17:57)
[2019-09-03] MEDS: MUPIROCIN 2% OINTMENT 22 GM TP SCH (10:27)
--- NOTE | 2019-09-03 12:37 | PDOC PROGRESS REPORT ---
Subjective Progress Note for:: 09/03/19 Reason For Visit: PERSAUD S/P SKIN GRAFT,MALNUTRITION,HTN 09/03/2019 Admitted for malnutrition, dysphagia, nonhealing wound, PEG tube, urinary retention, weakness, alcohol abuse Physical Exam Vital Signs: Temp Pulse Resp BP Pulse Ox 97.6 F 85 20 116/49 L 93 09/03/19 12:00 09/03/19 12:00 09/03/19 12:00 09/03/19 12:00 09/03/19 12:00 Intake & Output 09/02/19 09/03/19 09/04/19 06:59 06:59 06:59 Intake Total 1190 1198 240 Output Total 2460 5208 250 Balance -1270 -877 -10 Weight 60.2 kg 58.9 kg General appearance: PRESENT: no acute distress, other - Actually had a good conversation with the patient today. Most of the time he has been asleep Respiratory exam: PRESENT: clear to auscultation daniel. ABSENT: rales, rhonchi, wheezes Cardiovascular exam: PRESENT: RRR. ABSENT: diastolic murmur, rubs, systolic murmur Neurological exam: PRESENT: alert, oriented to person, oriented to place, oriented to situation, other - Patient was aware that he was in [place], aware that he had a stroke, aware that he was in [facility] Psychiatric exam: PRESENT: flat affect, normal mood. ABSENT: homicidal ideation, suicidal ideation Results Laboratory Results: 09/03/19 08:43 09/03/19 08:43 09/03/19 09/03/19 08:43 08:43 WBC 7.2 RBC 3.46 L Hgb 10.8 L Hct 31.6 L MCV 91 MCH 31.1 MCHC 34.1 RDW 15.3 H Plt Count 236 Seg Neutrophils % 50.7 Sodium 141.3 Potassium 4.6 Chloride 101 Carbon Dioxide 30 Anion Gap 10 BUN 45 H Creatinine 0.90 Est GFR ( Amer) > 60 Glucose 101 Calcium 10.3 H Impressions: Chest X-Ray 08/22/19 00:00 IMPRESSION: NO ACUTE RADIOGRAPHIC FINDING IN THE CHEST. Head CT 08/30/19 08:59 IMPRESSION: MILD CHRONIC CHANGES OF ATROPHY AND MICROVASCULAR ISCHEMIA. NO ACUTE PROCESS. EVIDENCE OF ACUTE STROKE: NO. Assessment and Plan - Diagnosis (1) Caloric malnutrition Is this a current diagnosis for this admission?: Yes (2) Dysphagia Qualifiers: Dysphagia type: unspecified Qualified Code(s): R13.10 - Dysphagia, unspecified Is this a current diagnosis for this admission?: Yes (3) Non-healing wound of lower extremity Qualifiers: Encounter type: initial encounter Laterality: left Qualified Code(s): S81.802A - Unspecified open wound, left lower leg, initial encounter Is this a current diagnosis for this admission?: Yes (4) PEG (percutaneous endoscopic gastrostomy) status Is this a current diagnosis for this admission?: Yes (5) S/P split thickness skin graft Is this a current diagnosis for this admission?: Yes (6) Urinary retention Is this a current diagnosis for this admission?: Yes (7) Weakness Is this a current diagnosis for this admission?: Yes (8) ETOH abuse Is this a current diagnosis for this admission?: Yes - Plan Summary Summary: 08/29/2019 Discharge planning is working on placement. Patient is medically stable for discharge Admission patient's weight was 67.9 kg today it is 57.5 kg. Patient has been seen by dietary they have made recommendations with 900 kcal, 458 mL's of free fluid and 41 g of protein. Patient is currently on Prosource NG tube 3 times daily. Also lactobacillus acidophilus 500 mg twice daily, thiamine and multivitamins We will check another chemistry panel today Patient also continues to work with physical therapy and will need physical therapy at time of discharge 08/30/2019 Still waiting for a bed at one of the local care home facilities Patient had a stat CT brain scan today because of his neurologic complaints. This showed no acute findings only chronic changes Patient's vital signs are stable, he is medically stable for discharge once care home facility excepting 08/31/2019 Vital signs are stable, all of his lab work is stable Physical therapy recommends need working 1 time per day 2 to 5 days/week Hopefully care home facility will be possible in the next couple of days 09/01/2019 No significant changes Patient was transferred here back from [facility] burn [place] August 16. Patient was originally admitted here for wound care as well as attritional needs. Patient has now stabilized and waiting care home facility due to generalized weakness, failure to thrive with malnutrition, hypertension, history of alcohol abuse, dysphagia Patient is medically stable for transfer 09/02/2019 Will increase nightly tube feedings per recommendation of dietary, 5 mL's nightly up to total of 75 mL's Waiting for care home facility basement Patient is not a good rehab candidate at this time due to weakness and unwillingness to cooperate 09/03/2019 Vital signs are extremely stable. Labs from today are also stable Unfortunately the order from yesterday to increase nightly tube feedings was not performed, therefore starting tonight he will go up to 55 mL's per hour tomorrow night 60 mL's per hour until he gets to 75 Actually sat down with the patient and tried to have a conversation with him, somewhat hard to understand Discharge planning is involved trying to secure placement - Time Time Spent with patient: 25-34 minutes
[2019-09-03] MEDS: MELATONIN 3 MG TABLET PO SCH (21:46)
[2019-09-03] MEDS: DOXAZOSIN MESYLATE 2 MG TABLET PO SCH (21:46)
[2019-09-04] MEDS: RISPERIDONE 1 MG TABLET PO SCH ×2 (05:28→17:33)
[2019-09-04] MEDS: PANTOPRAZOLE SODIUM 40 MG TABLET.DR PO SCH (05:28)
[2019-09-04] MEDS: AMINO AC/PROTEIN HYDR/WHEY PRO 11 GM/45 ML PKT NG SCH ×3 (09:38→17:33)
[2019-09-04] MEDS: MULTIVITAMIN ORAL LIQUID 60 ML PO SCH (09:38)
[2019-09-04] MEDS: ENOXAPARIN SODIUM INJ 30 MG/0.3 ML DISP.SYRIN SUBCUT SCH (09:38)
[2019-09-04] MEDS: ASCORBIC ACID 500 MG TABLET PO SCH (09:39)
[2019-09-04] MEDS: LACTOBACILLUS ACIDOPHILUS 250 MG TAB PO SCH ×2 (09:39→17:33)
[2019-09-04] MEDS: BUSPIRONE HCL 10 MG TABLET PO SCH ×2 (09:39→21:08)
[2019-09-04] MEDS: THIAMINE HCL 100 MG TABLET PO SCH (09:39)
[2019-09-04] MEDS: FOLIC ACID 1 MG TABLET PO SCH (09:39)
[2019-09-04] MEDS: MUPIROCIN 2% OINTMENT 22 GM TP SCH (09:40)
[2019-09-04] MEDS: AMLODIPINE BESYLATE 5 MG TABLET PO SCH (09:40)
--- NOTE | 2019-09-04 15:04 | PDOC PROGRESS REPORT ---
Subjective Progress Note for:: 09/04/19 Reason For Visit: PERSAUD S/P SKIN GRAFT,MALNUTRITION,HTN 09/04/2019 Patient medically stable ready for discharge to jail facility when bed is available Physical Exam Vital Signs: Temp Pulse Resp BP Pulse Ox 97.7 F 95 18 130/51 H 94 09/04/19 11:40 09/04/19 11:40 09/04/19 11:40 09/04/19 11:40 09/04/19 11:40 Intake & Output 09/03/19 09/04/19 09/05/19 06:59 06:59 06:59 Intake Total 1198 2138 827 Output Total 2075 1600 600 Balance -877 538 227 Weight 58.9 kg 59.8 kg General appearance: PRESENT: no acute distress, hard of hearing, thin Respiratory exam: PRESENT: clear to auscultation daniel. ABSENT: rales, rhonchi, wheezes Cardiovascular exam: PRESENT: RRR. ABSENT: diastolic murmur, rubs, systolic murmur Results Laboratory Results: 09/03/19 08:43 09/03/19 08:43 Impressions: Chest X-Ray 08/22/19 00:00 IMPRESSION: NO ACUTE RADIOGRAPHIC FINDING IN THE CHEST. Head CT 08/30/19 08:59 IMPRESSION: MILD CHRONIC CHANGES OF ATROPHY AND MICROVASCULAR ISCHEMIA. NO ACUTE PROCESS. EVIDENCE OF ACUTE STROKE: NO. Assessment and Plan - Diagnosis (1) Caloric malnutrition Is this a current diagnosis for this admission?: Yes (2) Dysphagia Qualifiers: Dysphagia type: unspecified Qualified Code(s): R13.10 - Dysphagia, unspecified Is this a current diagnosis for this admission?: Yes (3) Non-healing wound of lower extremity Qualifiers: Encounter type: initial encounter Laterality: left Qualified Code(s): S81.802A - Unspecified open wound, left lower leg, initial encounter Is this a current diagnosis for this admission?: Yes (4) PEG (percutaneous endoscopic gastrostomy) status Is this a current diagnosis for this admission?: Yes (5) S/P split thickness skin graft Is this a current diagnosis for this admission?: Yes (6) Urinary retention Is this a current diagnosis for this admission?: Yes (7) Weakness Is this a current diagnosis for this admission?: Yes (8) ETOH abuse Is this a current diagnosis for this admission?: Yes - Plan Summary Summary: 08/29/2019 Discharge planning is working on placement. Patient is medically stable for discharge Admission patient's weight was 67.9 kg today it is 57.5 kg. Patient has been seen by dietary they have made recommendations with 900 kcal, 458 mL's of free fluid and 41 g of protein. Patient is currently on Prosource NG tube 3 times daily. Also lactobacillus acidophilus 500 mg twice daily, thiamine and multivitamins We will check another chemistry panel today Patient also continues to work with physical therapy and will need physical therapy at time of discharge 08/30/2019 Still waiting for a bed at one of the local jail facilities Patient had a stat CT brain scan today because of his neurologic complaints. This showed no acute findings only chronic changes Patient's vital signs are stable, he is medically stable for discharge once jail facility excepting 08/31/2019 Vital signs are stable, all of his lab work is stable Physical therapy recommends need working 1 time per day 2 to 5 days/week Hopefully jail facility will be possible in the next couple of days 09/01/2019 No significant changes Patient was transferred here back from [facility] [place] August 16. Patient was originally admitted here for wound care as well as attritional needs. Patient has now stabilized and waiting jail facility due to g eneralized weakness, failure to thrive with malnutrition, hypertension, history of alcohol abuse, dysphagia Patient is medically stable for transfer 09/02/2019 Will increase nightly tube feedings per recommendation of dietary, 5 mL's nightly up to total of 75 mL's Waiting for jail facility basement Patient is not a good rehab candidate at this time due to weakness and unwillingness to cooperate 09/03/2019 Vital signs are extremely stable. Labs from today are also stable Unfortunately the order from yesterday to increase nightly tube feedings was not performed, therefore starting tonight he will go up to 55 mL's per hour tomorrow night 60 mL's per hour until he gets to 75 Actually sat down with the patient and tried to have a conversation with him, somewhat hard to understand Discharge planning is involved trying to secure placement 09/04/2019 Vital signs stable CBC is normal electrolytes basically normal, though patient starting to look a little dry probably due to his poor intake Not feel that this warrants starting an IV. Will discuss with nursing about adding fluids down the feeding tube Will ask discharge planning for an update - Time Time Spent with patient: 15-24 minutes
[2019-09-04] MEDS: MELATONIN 3 MG TABLET PO SCH (21:08)
[2019-09-04] MEDS: RISPERIDONE 1 MG TABLET PO PRN (21:08)
[2019-09-04] MEDS: DOXAZOSIN MESYLATE 2 MG TABLET PO SCH (21:40)
[2019-09-05] MEDS: PANTOPRAZOLE SODIUM 40 MG TABLET.DR PO SCH (06:38)
[2019-09-05] MEDS: RISPERIDONE 1 MG TABLET PO SCH ×2 (06:38→17:29)
[2019-09-05] MEDS: FOLIC ACID 1 MG TABLET PO SCH (10:25)
[2019-09-05] MEDS: LACTOBACILLUS ACIDOPHILUS 250 MG TAB PO SCH ×2 (10:25→17:29)
[2019-09-05] MEDS: BUSPIRONE HCL 10 MG TABLET PO SCH ×2 (10:25→21:21)
[2019-09-05] MEDS: ENOXAPARIN SODIUM INJ 30 MG/0.3 ML DISP.SYRIN SUBCUT SCH (10:25)
[2019-09-05] MEDS: ASCORBIC ACID 500 MG TABLET PO SCH (10:25)
[2019-09-05] MEDS: AMLODIPINE BESYLATE 5 MG TABLET PO SCH ×2 (10:25→21:20)
[2019-09-05] MEDS: THIAMINE HCL 100 MG TABLET PO SCH (10:25)
[2019-09-05] MEDS: AMINO AC/PROTEIN HYDR/WHEY PRO 11 GM/45 ML PKT NG SCH ×3 (10:26→17:30)
[2019-09-05] MEDS: MUPIROCIN 2% OINTMENT 22 GM TP SCH (10:40)
[2019-09-05] MEDS: MULTIVITAMIN ORAL LIQUID 60 ML PO SCH (10:41)
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
[2019-09-05] MEDS: MELATONIN 3 MG TABLET PO SCH (21:20)
[2019-09-05] MEDS: DOXAZOSIN MESYLATE 2 MG TABLET PO SCH (21:24)
[2019-09-06] MEDS: PANTOPRAZOLE SODIUM 40 MG TABLET.DR PO SCH (06:13)
[2019-09-06] MEDS: RISPERIDONE 1 MG TABLET PO SCH ×2 (06:14→15:38)
[2019-09-06] MEDS: BUSPIRONE HCL 10 MG TABLET PO SCH ×2 (09:38→22:06)
[2019-09-06] MEDS: THIAMINE HCL 100 MG TABLET PO SCH (09:39)
[2019-09-06] MEDS: ASCORBIC ACID 500 MG TABLET PO SCH (09:40)
[2019-09-06] MEDS: AMLODIPINE BESYLATE 5 MG TABLET PO SCH ×2 (09:42→22:09)
[2019-09-06] MEDS: FOLIC ACID 1 MG TABLET PO SCH (09:43)
[2019-09-06] MEDS: LACTOBACILLUS ACIDOPHILUS 250 MG TAB PO SCH ×2 (09:44→18:02)
[2019-09-06] MEDS: ENOXAPARIN SODIUM INJ 30 MG/0.3 ML DISP.SYRIN SUBCUT SCH (09:44)
[2019-09-06] MEDS: AMINO AC/PROTEIN HYDR/WHEY PRO 11 GM/45 ML PKT NG SCH ×3 (13:07→18:02)
[2019-09-06] MEDS: MUPIROCIN 2% OINTMENT 22 GM TP SCH (13:07)
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
[2019-09-06] MEDS: MULTIVITAMIN ORAL LIQUID 60 ML PO SCH (13:17)
[2019-09-06] MEDS: ACETAMINOPHEN 325 MG TABLET PO PRN (22:05)
[2019-09-06] MEDS: MELATONIN 3 MG TABLET PO SCH (22:06)
[2019-09-06] MEDS: DOXAZOSIN MESYLATE 2 MG TABLET PO SCH (22:08)
[2019-09-07] MEDS: PANTOPRAZOLE SODIUM 40 MG TABLET.DR PO SCH (06:48)
[2019-09-07] MEDS: RISPERIDONE 1 MG TABLET PO SCH ×2 (06:48→17:12)
[2019-09-07] MEDS: MULTIVITAMIN ORAL LIQUID 60 ML PO SCH (09:51)
[2019-09-07] MEDS: MINERAL OIL/PETROLATUM,WHITE CREAM 114 GM TP SCH (09:52)
[2019-09-07] MEDS: FOLIC ACID 1 MG TABLET PO SCH (09:53)
[2019-09-07] MEDS: BUSPIRONE HCL 10 MG TABLET PO SCH ×2 (09:53→21:29)
[2019-09-07] MEDS: LACTOBACILLUS ACIDOPHILUS 250 MG TAB PO SCH ×2 (09:53→17:12)
[2019-09-07] MEDS: AMINO AC/PROTEIN HYDR/WHEY PRO 11 GM/45 ML PKT NG SCH ×3 (09:53→17:13)
[2019-09-07] MEDS: THIAMINE HCL 100 MG TABLET PO SCH (09:54)
[2019-09-07] MEDS: ASCORBIC ACID 500 MG TABLET PO SCH (09:54)
[2019-09-07] MEDS: ENOXAPARIN SODIUM INJ 30 MG/0.3 ML DISP.SYRIN SUBCUT SCH (09:56)
[2019-09-07] MEDS: AMLODIPINE BESYLATE 5 MG TABLET PO SCH ×2 (09:56→21:29)
[2019-09-07] MEDS: MUPIROCIN 2% OINTMENT 22 GM TP SCH (09:56)
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
[2019-09-07] MEDS: MELATONIN 3 MG TABLET PO SCH (21:29)
[2019-09-07] MEDS: DOXAZOSIN MESYLATE 2 MG TABLET PO SCH (21:30)
[2019-09-08] MEDS: PANTOPRAZOLE SODIUM 40 MG TABLET.DR PO SCH (05:18)
[2019-09-08] MEDS: RISPERIDONE 1 MG TABLET PO SCH ×2 (05:19→16:21)
[2019-09-08] MEDS: MINERAL OIL/PETROLATUM,WHITE CREAM 114 GM TP SCH (10:26)
[2019-09-08] MEDS: AMLODIPINE BESYLATE 5 MG TABLET PO SCH ×2 (10:27→21:20)
[2019-09-08] MEDS: FOLIC ACID 1 MG TABLET PO SCH (10:27)
[2019-09-08] MEDS: LACTOBACILLUS ACIDOPHILUS 250 MG TAB PO SCH ×2 (10:27→17:26)
[2019-09-08] MEDS: THIAMINE HCL 100 MG TABLET PO SCH (10:27)
[2019-09-08] MEDS: BUSPIRONE HCL 10 MG TABLET PO SCH ×2 (10:27→21:20)
[2019-09-08] MEDS: AMINO AC/PROTEIN HYDR/WHEY PRO 11 GM/45 ML PKT NG SCH ×3 (10:28→17:26)
[2019-09-08] MEDS: ASCORBIC ACID 500 MG TABLET PO SCH (10:28)
[2019-09-08] MEDS: ENOXAPARIN SODIUM INJ 30 MG/0.3 ML DISP.SYRIN SUBCUT SCH (10:28)
[2019-09-08] MEDS: MULTIVITAMIN ORAL LIQUID 60 ML PO SCH (10:29)
[2019-09-08] MEDS: MUPIROCIN 2% OINTMENT 22 GM TP SCH (10:29)
[2019-09-08] MEDS: DOXAZOSIN MESYLATE 2 MG TABLET PO SCH (21:20)
[2019-09-08] MEDS: MELATONIN 3 MG TABLET PO SCH (21:20)
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
[2019-09-09] MEDS: PANTOPRAZOLE SODIUM 40 MG TABLET.DR PO SCH (05:10)
[2019-09-09] MEDS: RISPERIDONE 1 MG TABLET PO SCH ×2 (05:10→16:15)
[2019-09-09] MEDS: LACTOBACILLUS ACIDOPHILUS 250 MG TAB PO SCH ×2 (12:47→18:26)
[2019-09-09] MEDS: BUSPIRONE HCL 10 MG TABLET PO SCH ×2 (12:48→21:11)
[2019-09-09] MEDS: FOLIC ACID 1 MG TABLET PO SCH (12:48)
[2019-09-09] MEDS: AMLODIPINE BESYLATE 5 MG TABLET PO SCH ×2 (12:49→21:12)
[2019-09-09] MEDS: ASCORBIC ACID 500 MG TABLET PO SCH (12:49)
[2019-09-09] MEDS: AMINO AC/PROTEIN HYDR/WHEY PRO 11 GM/45 ML PKT NG SCH ×3 (12:50→18:26)
[2019-09-09] MEDS: ENOXAPARIN SODIUM INJ 30 MG/0.3 ML DISP.SYRIN SUBCUT SCH (12:51)
[2019-09-09] MEDS: MULTIVITAMIN ORAL LIQUID 60 ML PO SCH (12:51)
[2019-09-09] MEDS: MINERAL OIL/PETROLATUM,WHITE CREAM 114 GM TP SCH (12:52)
[2019-09-09] MEDS: MUPIROCIN 2% OINTMENT 22 GM TP SCH (12:53)
[2019-09-09] MEDS: THIAMINE HCL 100 MG TABLET PO SCH (12:54)
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
[2019-09-09] MEDS: ACETAMINOPHEN 325 MG TABLET PO PRN (18:12)
[2019-09-09] MEDS: DOXAZOSIN MESYLATE 2 MG TABLET PO SCH (21:11)
[2019-09-09] MEDS: MELATONIN 3 MG TABLET PO SCH (21:11)
[2019-09-10] MEDS: RISPERIDONE 1 MG TABLET PO SCH ×2 (05:23→17:20)
[2019-09-10] MEDS: PANTOPRAZOLE SODIUM 40 MG TABLET.DR PO SCH (05:23)
[2019-09-10 06:00] LABS: HEMATOCRIT 31.5 % (37.9-51.0); HEMOGLOBIN 10.7 g/dL (13.5-17.0); MEAN CORPUSCULAR HEMOGLOBIN 31.2 pg (27.0-33.4); MEAN CORPUSCULAR HGB CONC 33.9 g/dL (32.0-36.0); MEAN CORPUSCULAR VOLUME 92 fl (80-97); PLATELET COUNT 240 10^3/uL (150-450); RED BLOOD COUNT 3.43 10^6/uL (4.35-5.55); WHITE BLOOD COUNT 6.8 10^3/uL (4.0-10.5)
[2019-09-10 06:23] LABS: ALBUMIN 3.4 g/dL (3.5-5.0); ALKALINE PHOSPHATASE 111 U/L (38-126); ANION GAP 8 (5-19); ASPARTATE AMINO TRANSFERASE 20 U/L (17-59); BILIRUBIN,DIRECT 0.1 mg/dL (0.0-0.4); BILIRUBIN,TOTAL 0.2 mg/dL (0.2-1.3); BLOOD UREA NITROGEN 45 mg/dL (7-20); CALCIUM 9.8 mg/dL (8.4-10.2); CARBON DIOXIDE 30 mmol/L (22-30); CHLORIDE 99 mmol/L (98-107); GLUCOSE 111 mg/dL (75-110); PHOSPHORUS 3.9 mg/dL (2.5-4.5); POTASSIUM 4.1 mmol/L (3.6-5.0); TOTAL PROTEIN 6.7 g/dL (6.3-8.2)
[2019-09-10 06:31] LABS: PREALBUMIN 20.1 mg/dL (17.6-36.0)
[2019-09-10] MEDS: LACTOBACILLUS ACIDOPHILUS 250 MG TAB PO SCH ×2 (09:53→17:20)
[2019-09-10] MEDS: FOLIC ACID 1 MG TABLET PO SCH (09:53)
[2019-09-10] MEDS: AMINO AC/PROTEIN HYDR/WHEY PRO 11 GM/45 ML PKT NG SCH ×3 (09:53→17:20)
[2019-09-10] MEDS: BUSPIRONE HCL 10 MG TABLET PO SCH ×2 (09:53→21:03)
[2019-09-10] MEDS: AMLODIPINE BESYLATE 5 MG TABLET PO SCH ×2 (09:53→21:03)
[2019-09-10] MEDS: ASCORBIC ACID 500 MG TABLET PO SCH (09:53)
[2019-09-10] MEDS: THIAMINE HCL 100 MG TABLET PO SCH (09:53)
[2019-09-10] MEDS: MUPIROCIN 2% OINTMENT 22 GM TP SCH (09:54)
[2019-09-10] MEDS: MULTIVITAMIN ORAL LIQUID 60 ML PO SCH (09:54)
[2019-09-10] MEDS: MINERAL OIL/PETROLATUM,WHITE CREAM 114 GM TP SCH (09:54)
[2019-09-10] MEDS: ENOXAPARIN SODIUM INJ 30 MG/0.3 ML DISP.SYRIN SUBCUT SCH (09:54)
[2019-09-10] MEDS: MULTIVITAMINS W-IRON TABLET, CHEWABLE PO SCH (10:30)
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
[2019-09-10] MEDS: MELATONIN 3 MG TABLET PO SCH (21:03)
[2019-09-10] MEDS: DOXAZOSIN MESYLATE 2 MG TABLET PO SCH (21:03)
[2019-09-11] MEDS: PANTOPRAZOLE SODIUM 40 MG TABLET.DR PO SCH (05:10)
[2019-09-11] MEDS: RISPERIDONE 1 MG TABLET PO SCH ×2 (05:10→18:01)
[2019-09-11] MEDS: AMLODIPINE BESYLATE 5 MG TABLET PO SCH ×2 (09:58→21:51)
[2019-09-11] MEDS: LACTOBACILLUS ACIDOPHILUS 250 MG TAB PO SCH ×2 (09:58→18:01)
[2019-09-11] MEDS: ASCORBIC ACID 500 MG TABLET PO SCH (09:58)
[2019-09-11] MEDS: FOLIC ACID 1 MG TABLET PO SCH (09:58)
[2019-09-11] MEDS: THIAMINE HCL 100 MG TABLET PO SCH (09:58)
[2019-09-11] MEDS: BUSPIRONE HCL 10 MG TABLET PO SCH ×2 (09:58→21:52)
[2019-09-11] MEDS: MINERAL OIL/PETROLATUM,WHITE CREAM 114 GM TP SCH (09:59)
[2019-09-11] MEDS: MULTIVITAMINS W-IRON TABLET, CHEWABLE PO SCH (09:59)
[2019-09-11] MEDS: AMINO AC/PROTEIN HYDR/WHEY PRO 11 GM/45 ML PKT NG SCH ×3 (09:59→18:01)
[2019-09-11] MEDS: ENOXAPARIN SODIUM INJ 30 MG/0.3 ML DISP.SYRIN SUBCUT SCH (10:00)
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
[2019-09-11] MEDS: MELATONIN 3 MG TABLET PO SCH (21:51)
[2019-09-11] MEDS: DOXAZOSIN MESYLATE 2 MG TABLET PO SCH (21:52)
[2019-09-12] MEDS: RISPERIDONE 1 MG TABLET PO SCH ×2 (05:16→15:26)
[2019-09-12] MEDS: PANTOPRAZOLE SODIUM 40 MG TABLET.DR PO SCH (05:16)
[2019-09-12] MEDS: ASCORBIC ACID 500 MG TABLET PO SCH (10:20)
[2019-09-12] MEDS: ENOXAPARIN SODIUM INJ 30 MG/0.3 ML DISP.SYRIN SUBCUT SCH (10:20)
[2019-09-12] MEDS: FOLIC ACID 1 MG TABLET PO SCH (10:20)
[2019-09-12] MEDS: MULTIVITAMINS W-IRON TABLET, CHEWABLE PO SCH (10:20)
[2019-09-12] MEDS: BUSPIRONE HCL 10 MG TABLET PO SCH ×2 (10:20→21:20)
[2019-09-12] MEDS: LACTOBACILLUS ACIDOPHILUS 250 MG TAB PO SCH ×2 (10:20→17:48)
[2019-09-12] MEDS: AMLODIPINE BESYLATE 5 MG TABLET PO SCH ×2 (10:20→21:20)
[2019-09-12] MEDS: THIAMINE HCL 100 MG TABLET PO SCH (10:20)
[2019-09-12] MEDS: AMINO AC/PROTEIN HYDR/WHEY PRO 11 GM/45 ML PKT NG SCH ×3 (10:21→17:48)
[2019-09-12] MEDS: MINERAL OIL/PETROLATUM,WHITE CREAM 114 GM TP SCH (10:22)
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
[2019-09-12] MEDS: DOXAZOSIN MESYLATE 2 MG TABLET PO SCH (21:19)
[2019-09-12] MEDS: MELATONIN 3 MG TABLET PO SCH (21:20)
[2019-09-13] MEDS: PANTOPRAZOLE SODIUM 40 MG TABLET.DR PO SCH (05:15)
[2019-09-13] MEDS: RISPERIDONE 1 MG TABLET PO SCH ×2 (05:15→17:23)
[2019-09-13 08:05] VITALS: BP 129/45
[2019-09-13] MEDS: LACTOBACILLUS ACIDOPHILUS 250 MG TAB PO SCH (10:16)
[2019-09-13] MEDS: AMINO AC/PROTEIN HYDR/WHEY PRO 11 GM/45 ML PKT NG SCH ×2 (10:16→17:23)
[2019-09-13] MEDS: FOLIC ACID 1 MG TABLET PO SCH (10:17)
[2019-09-13] MEDS: MULTIVITAMINS W-IRON TABLET, CHEWABLE PO SCH (10:17)
[2019-09-13] MEDS: ASCORBIC ACID 500 MG TABLET PO SCH (10:17)
[2019-09-13] MEDS: BUSPIRONE HCL 10 MG TABLET PO SCH (10:17)
[2019-09-13] MEDS: THIAMINE HCL 100 MG TABLET PO SCH (10:17)
[2019-09-13] MEDS: AMLODIPINE BESYLATE 5 MG TABLET PO SCH (10:17)
[2019-09-13] MEDS: ENOXAPARIN SODIUM INJ 30 MG/0.3 ML DISP.SYRIN SUBCUT SCH (10:18)
[2019-09-13] MEDS: MINERAL OIL/PETROLATUM,WHITE CREAM 114 GM TP SCH (10:19)
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
== END 2019-09-13 17:34 | DRG 607 ==
LOC: 4S 20:39
PROVIDERS: ADMIT Hospitalist; ATTEND Internal Medicine
DX: L55.2 Sunburn of third degree (principal); E46 Unspecified protein-calorie malnutrition; Z43.1 Encounter for attention to gastrostomy; Z68.1 Body mass index [BMI] 19.9 or less, adult; F10.21 Alcohol dependence, in remission; F17.200 Nicotine dependence, unspecified, uncomplicated; Z66 Do not resuscitate; Z88.8 Allergy status to other drugs, medicaments and biological substances; I10 Essential (primary) hypertension; R41.9 Unspecified symptoms and signs involving cognitive functions and awareness; R47.1 Dysarthria and anarthria; Z94.5 Skin transplant status; R62.7 Adult failure to thrive; R33.9 Retention of urine, unspecified; D64.9 Anemia, unspecified
CPT/HCPCS: 36415; 70450; 71045; 80048; 80053; 80061; 83735; 84100; 84134; 84443; 85025; 85027; B4155; C1751; J1630; J1650; J3490